=== PATIENT | female | born 1995 | race Caucasian/White ===

== ENCOUNTER → 2016-03-16 | Outpatient (REF) | payer OTHER ==
[~2016-03-16] MED LIST: FIORCAP7 PO; IBUP60TA PO; LABE20TAB PO; MOTR200T40 PO; PERC5TAB6 PO; PERCOCET PO; VALT500T PO
== END ==
LOC: M LAB REF 17:09
PROVIDERS: ATTEND Advanced Practice Midwife
DX: Z34.83 Encounter for supervision of other normal pregnancy, third trimester (principal)

== ENCOUNTER → 2016-03-29 | Outpatient (CLI) | payer OTHER ==
[~2016-03-29] MED LIST changes: -MOTR200T40 PO; +MOTR200T44 PO
[2016-03-29 15:49] LABS: BASO % 0.2 % (0.0-1.0); EOS # 0.1 K/mm3 (0.0-0.50); EOS % 1.5 % (0.0-3.0); LARGE UNSTAINED CELL # 0.2 K/mm3 (0.0-0.4); LARGE UNSTAINED CELL % 2.2 % (0.0-4.0); LYMPH # 1.7 K/mm3 (1.5-6.5); LYMPH % 19.6 % (24.0-44.0); MEAN CORPUSCULAR HEMOGLOBIN 25.7 pg (27.0-33.0); MEAN CORPUSCULAR HGB CONC 31.4 g/dl (32.0-36.5); MEAN CORPUSCULAR VOLUME 81.9 fl (80.0-96.0); MONO # 0.4 K/mm3 (0.0-0.8); MONO % 4.8 % (0.0-5.0); NEUTROPHILS # 6.3 K/mm3 (1.8-7.7); NEUTROPHILS % 71.7 % (36.0-66.0); PLATELET COUNT, AUTOMATED 195 k/mm3 (150-450); WHITE BLOOD COUNT 8.8 K/mm3 (4.0-10.0)
== END ==
LOC: M LAB 14:16
PROVIDERS: ATTEND Advanced Practice Midwife
DX: Z34.83 Encounter for supervision of other normal pregnancy, third trimester (principal)

== ENCOUNTER → 2016-04-13 | Outpatient (REF) | payer OTHER | LOC: M LAB REF 17:03 | PROVIDERS: ATTEND Advanced Practice Midwife | DX: Z34.82 Encounter for supervision of other normal pregnancy, second trimester (principal) ==

== ENCOUNTER → 2016-05-12 | Outpatient (REF) | payer OTHER | LOC: M LAB REF 12:50 | PROVIDERS: ATTEND Obstetrics & Gynecology | DX: Z34.83 Encounter for supervision of other normal pregnancy, third trimester (principal) ==

== ENCOUNTER → 2016-05-13 | Outpatient (CLI) | payer OTHER ==
[2016-05-13 13:43] LABS: MEAN CORPUSCULAR HEMOGLOBIN 25.1 pg (27.0-33.0); MEAN CORPUSCULAR VOLUME 81.1 fl (80.0-96.0); RED CELL DISTRIBUTION WIDTH 15.9 % (11.5-14.5); WHITE BLOOD COUNT 7.9 K/mm3 (4.0-10.0)
[2016-05-13 13:50] LABS: CREATININE, SERUM 0.5 MG/DL (0.6-1.0)
[2016-05-13 13:51] LABS: ALBUMIN 2.5 GM/DL (3.2-5.2); ALBUMIN/GLOBULIN RATIO 0.71 (1.00-1.93); ALKALINE PHOSPHATASE 149 U/L (45-117); ALT/SGPT 21 U/L (12-78); ANION GAP 9 MEQ/L (8-16); AST/SGOT 19 U/L (15-37); BILIRUBIN,TOTAL 0.2 MG/DL (0.2-1.0); BLOOD UREA NITROGEN 3 MG/DL (7-18); CALCIUM LEVEL 8.7 MG/DL (8.5-10.1); CARBON DIOXIDE LEVEL 23 MEQ/L (21-32); CHLORIDE LEVEL 109 MEQ/L (98-107); CREATININE FOR GFR 0.46 MG/DL (0.55-1.02); GLUCOSE, FASTING 88 MG/DL (70-105); POTASSIUM SERUM 3.9 MEQ/L (3.5-5.1); SODIUM LEVEL 141 MEQ/L (136-145); URIC ACID 2.7 MG/DL (2.6-6.0)
[2016-05-13 14:01] LABS: CREATININE CLEARANCE, URINE 86.1 ML/MIN (75-115)
== END ==
LOC: M LAB 12:55
PROVIDERS: ATTEND Obstetrics & Gynecology
DX: O16.9 Unspecified maternal hypertension, unspecified trimester (principal)

== ENCOUNTER 2016-05-19 08:40 | Outpatient (CLI) | payer OTHER ==
[~2016-05-19] VITALS: Ht 160 cm; Wt 98.9 kg
[2016-05-19] MEDS ORDERED: IRON SUCROSE 25 MG in NS 50 ML IV ONE (09:00)
[2016-05-19] MEDS ORDERED: ACETAMINOPHEN 500 MG TAB PO ONE (09:45)
[2016-05-19] MEDS ORDERED: IRON SUCROSE 475 MG in NS 250 ML IV ONE (10:00)
[2016-05-19] MEDS ORDERED: PRENTAB31 PO (10:04)
[2016-05-19] MEDS ORDERED: IRON50TA PO (10:04)
== END 2016-05-19 14:45 | disposition home or self-care (01) ==
LOC: M INFU 08:40
PROVIDERS: ATTEND Specialist
DX: D64.9 Anemia, unspecified (principal)
CPT/HCPCS: 96365; 96366; J1756

== ENCOUNTER → 2016-05-25 | Outpatient (REF) | payer OTHER ==
[~2016-05-25] MED LIST changes: +IRON50TA PO; +PRENTAB31 PO
== END ==
LOC: M LAB REF 12:18
PROVIDERS: ATTEND Obstetrics & Gynecology
DX: O11.3 Pre-existing hypertension with pre-eclampsia, third trimester (principal)

== ENCOUNTER 2016-06-01 07:34 | Inpatient (IN) | payer OTHER ==
[~2016-06-01] VITALS: Ht 160 cm; Wt 99.3 kg
[2016-06-01] MEDS ORDERED: LACTATED RINGER'S 1000 ML IV STA ×2 (08:33→23:37)
[2016-06-01] MEDS ORDERED: LR 1,000 ML IV SCH ×2 (08:33→13:30)
[2016-06-01] MEDS ORDERED: BICITRA 30ML SOLN UDC PO ONE (08:45)
[2016-06-01 09:29] LABS: MEAN CORPUSCULAR HEMOGLOBIN 25.7 pg (27.0-33.0); MEAN CORPUSCULAR HGB CONC 30.9 g/dl (32.0-36.5); MEAN CORPUSCULAR VOLUME 83.1 fl (80.0-96.0); RED CELL DISTRIBUTION WIDTH 19.5 % (11.5-14.5); WHITE BLOOD COUNT 7.3 K/mm3 (4.0-10.0)
[2016-06-01] MEDS ORDERED: NALBUPHINE HCL 10 MG/ML AMP (J2300) IV PRN ×2 (11:17→13:30)
[2016-06-01] MEDS ORDERED: NALOXONE INJ 0.4 MG/1 ML VIAL (J2310) IV PRN ×2 (11:17)
[2016-06-01] MEDS ORDERED: METOCLOPRAMIDE INJ 10MG/2ML VIAL (J2765) IV PRN (11:17)
[2016-06-01] MEDS ORDERED: ONDANSETRON 4MG/2ML VIAL (J2405) IV PRN ×2 (11:17→13:30)
[2016-06-01] MEDS ORDERED: PHENYLephrine HCL 500 MCG/5 ML (100MCG/ML) SYRINGE (J2370) As Ordered ONE (11:53)
[2016-06-01] MEDS ORDERED: MORPHINE PRES-FREE INJ 10 MG/10 ML VIAL (J2274) As Ordered ONE (11:53)
[2016-06-01] MEDS ORDERED: KETOROLAC 60 MG/2 ML VIAL (J1885) As Ordered ONE (11:53)
[2016-06-01] MEDS ORDERED: ONDANSETRON 4MG/2ML VIAL (J2405) As Ordered ONE (11:53)
[2016-06-01] MEDS ORDERED: ePHEDrine SULFATE 25 MG/5 ML(5MG/ML) SYRINGE As Ordered ONE ×2 (11:53→13:31)
[2016-06-01] MEDS ORDERED: MIDAZOLAM INJ 2 MG/2 ML VIAL (J2250) As Ordered ONE (11:58)
[2016-06-01] MEDS ORDERED: OXYTOCIN INJ 10 UNITS/ML VIAL (J2590) As Ordered ONE (12:02)
[2016-06-01] MEDS ORDERED: OXYTOCIN 30 UNITS IN 0.9% NaCl 500ML IV BAG (J2590) As Ordered ONE ×2 (12:49→13:21)
[2016-06-01] MEDS: diphenhydrAMINE INJ 50MG/ML VIAL (J1200) IV PRN ×2 (13:25→14:00)
[2016-06-01] MEDS ORDERED: OXYTOCIN DRIP 30 UNITS in APPROPRIATE DILUENT 1 EA IV ONE (13:30)
[2016-06-01] MEDS ORDERED: RHOGAM 300 MCG (1500 IU) INJ (J2790) IM SCH (13:30)
[2016-06-01] MEDS ORDERED: PERCOCET 5MG/325MG TAB PO PRN ×2 (13:30)
[2016-06-01] MEDS ORDERED: HYDROmorphone HCL 1 MG/ML SYRINGE (J1170) IV PRN (13:30)
[2016-06-01] MEDS ORDERED: MEASLES,MUMPS,RUBELLA VACCINE INJ (MMR-II) (90707) SC SCH (13:30)
[2016-06-01] MEDS ORDERED: DOCUSATE SODIUM 100 MG CAP PO PRN (13:30)
[2016-06-01] MEDS ORDERED: fentaNYL 100 MCG/2 ML INJECTION (J3010) IV PRN (13:30)
[2016-06-01] MEDS ORDERED: MOM 30ML SUSPENSION UDC PO PRN (13:30)
[2016-06-01] MEDS ORDERED: diphenhydrAMINE INJ 50MG/ML VIAL (J1200) As Ordered ONE (13:31)
[2016-06-01] MEDS: KETOROLAC 30 MG/ML VIAL (J1885) IV SCH ×2 (17:32→23:17)
[2016-06-01] MEDS: LR 1,000 ML IV SCH ×3 (18:11→23:56)
[2016-06-01 22:40] VITALS: BP 133/63
[2016-06-01] MEDS ORDERED: LACTATED RINGER'S 1000 ML IV ONE (23:45)
[2016-06-01] MEDS ORDERED: diphenhydrAMINE INJ 50MG/ML VIAL (J1200) IV PRN ×2 (23:45)
[2016-06-02 02:53] VITALS: BP 148/76
--- NOTE | 2016-06-02 05:17 | RO ---
DATE OF PROCEDURE: 06/01/2016 PREOPERATIVE DIAGNOSES: 1. Intrauterine at 37+ weeks for repeat section. 2. Mild preeclampsia. POSTOPERATIVE DIAGNOSES: 1. Intrauterine at 37+ weeks for repeat section. 2. Mild preeclampsia. 3. High spinal anesthesia. PROCEDURE PERFORMED: Repeat section. SURGEON: Courtney Everett MD ASSISTANTS: Arron Horner DO ANESTHESIA: Spinal. ESTIMATED BLOOD LOSS: 550 mL. INTRAVENOUS FLUIDS: 2000 mL of lactated Ringer solution. POSTOPERATIVE URINE OUTPUT: 600 mL. PREOPERATIVE ANTIBIOTICS: 2 grams of Ancef. OPERATIVE FINDINGS: Liveborn male , 9 and 9, weight 7 pounds 14 ounces or 3564 grams. DESCRIPTION OF OPERATION: After informed consent was obtained and written consent was reviewed, the patient was brought to the operating room where spinal anesthesia was placed. She was then placed in a supine position with a left lateral tilt. It was noticed that the patient was experiencing a higher level from spinal anesthesia and decision was made to urgently proceed with delivery. She was emergently prepped and draped in a sterile fashion. Anesthesia was then tested, followed by an incision along with her previous Pfannenstiel skin incision, which was carried down to the underlying rectus fascia. The fascia was scored and this incision was extended bilaterally. The fascia was then dissected off the underlying rectus muscles both superiorly and inferiorly. The rectus muscles were in the midline. The peritoneum was entered sharply. The vesicouterine peritoneum was then identified, tented and excised to create a bladder flap. Bladder blade was retract back the bladder. Curvilinear incision was then made in the lower uterine segment. Amniotomy was then performed productive of clear fluid. head was delivered through the uterine incision atraumatically, followed by delivery of shoulders and corpus. The cord was clamped times two and was cut. Infant was taken over to the warmer. Cord blood was then obtained. Placenta was then drained and delivered grossly intact. The uterus was then exteriorized and cleared of all clots and debris. The uterine incision was then closed in two layers using #0 Vicryl, first layer in a running locking fashion, followed by a second layer for imbrication in a running nonlocking fashion. A [id number] stitch was placed for hemostasis. The abdomen was then suctioned. The uterus was then returned to the patient's abdomen. Uterine incision was re-inspected and noted to be hemostatic. The anterior peritoneum was then reapproximated with #3-0 Vicryl. Rectus muscles were then reapproximated using #3-0 Vicryl. The fascia was then closed using #0 Vicryl in a running nonlocking fashion. The subcutaneous tissue was then suctioned and irrigated. I then excise the previous Pfannenstiel scar. The subcutaneous tissue was then reapproximated using #3-0 Vicryl. Several subdermal stitches were placed with #3-0 Vicryl and the skin was closed with #4-0 Monocryl in a subcuticular fashion. The incision was then cleaned and dry. Mastisol was applied above and below the incision. Steri-Strips were applied over the incision and incision was dressed. Patient was then taken to recovery in stable condition. Counts were correct. MTDD
[2016-06-02 05:52] VITALS: BP 135/74
[2016-06-02] MEDS: LR 1,000 ML IV SCH ×3 (05:55→19:37)
[2016-06-02] MEDS: KETOROLAC 30 MG/ML VIAL (J1885) IV SCH ×2 (05:56→12:37)
[2016-06-02] MEDS ORDERED: IBUP800T23 PO (07:09)
[2016-06-02] MEDS ORDERED: OXYC1TAB23 PO (07:11)
[2016-06-02 07:19] LABS: MEAN CORPUSCULAR HEMOGLOBIN 25.3 pg (27.0-33.0); MEAN CORPUSCULAR HGB CONC 30.3 g/dl (32.0-36.5); MEAN CORPUSCULAR VOLUME 83.5 fl (80.0-96.0); RED CELL DISTRIBUTION WIDTH 19.6 % (11.5-14.5)
[2016-06-02] MEDS: PRENATAL VITAMIN TAB PO SCH (09:09)
[2016-06-02] MEDS: FERROUS SULFATE 325MG TAB PO SCH (09:09)
[2016-06-02 10:00] VITALS: BP 142/71
[2016-06-02] MEDS: PERCOCET 5MG/325MG TAB PO PRN ×4 (11:14→23:38)
[2016-06-02 14:00] VITALS: BP 113/62
[2016-06-02 18:20] VITALS: BP 122/72
[2016-06-02] MEDS: IBUPROFEN 800 MG TAB PO SCH (19:31)
[2016-06-02 22:20] VITALS: BP 136/81
[2016-06-02] MEDS: SIMETHICONE 80 MG CHEW TAB PO PRN (22:32)
[2016-06-03] MEDS: PERCOCET 5MG/325MG TAB PO PRN ×3 (02:33→16:17)
[2016-06-03] MEDS: IBUPROFEN 800 MG TAB PO SCH ×3 (04:22→20:21)
[2016-06-03 05:38] VITALS: BP 139/86
[2016-06-03] MEDS: SIMETHICONE 80 MG CHEW TAB PO PRN ×2 (06:31→15:25)
[2016-06-03] MEDS: FERROUS SULFATE 325MG TAB PO SCH (09:55)
[2016-06-03] MEDS: PRENATAL VITAMIN TAB PO SCH (09:55)
[2016-06-03 18:29] VITALS: BP 135/87
[2016-06-03 21:00] VITALS: BP 139/77
[2016-06-04] MEDS: IBUPROFEN 800 MG TAB PO SCH ×2 (05:03→12:19)
[2016-06-04 05:27] VITALS: BP 141/91
[2016-06-04] MEDS: PRENATAL VITAMIN TAB PO SCH (09:10)
[2016-06-04] MEDS: FERROUS SULFATE 325MG TAB PO SCH (09:10)
--- NOTE | 2016-06-04 10:26 | DSES ---
DATE OF ADMISSION: DATE OF DISCHARGE: 06/04/2016 DISCHARGE DIAGNOSIS: 1. Repeat section postoperative day #3 2. Mild preeclampsia resolving, stable condition. SURGEON: Dr. Courtney Everett HISTORY: Shanique is a 3, para 3-0-0-3 now, who underwent repeat section at 37+ weeks due to mild preeclampsia. Her postoperative course has been uncomplicated. She has been out of bed for self care, jessica care and care. Her pain has been well controlled with oral Percocet. She denies headache or vision, epigastric pain and right upper quadrant discomfort. She delivered a live male infant weighing 7 pounds 14 ounces, 3564 grams, score 9 and 9. She has been breast feeding and supplementing with formula. She does desire discharge today. Vital signs are stable. Temperature 95, pulse 86, respirations 20, blood pressure is 141/91. Her preoperative complete blood count (CBC) with hemoglobin of 10.5, hematocrit 33.9, platelets 129 on 06/01. Postoperative complete blood count (CBC) n 06/02 with hemoglobin of 7.5, hematocrit 24.7 and platelets of 117. She does deny dizziness, lightheadedness, palpitations and headache. She has been taking ferrous sulfate 325 mg by mouth twice a day PLAN: To discharge her home today. She is to follow up at [facility] in 3 to 4 days for blood pressure check, 2 weeks for an incision check and 6 weeks for appointment. I did review discharge instructions with her including breast care, incision care, jessica care, pelvic rest, activity and lifting restrictions, access to care, other danger signs related to preeclampsia and signs and symptoms of postoperative infection in which to report. Prescriptions for Percocet 5/325 by mouth has been faxed E prescribed by her surgeon to her pharmacy. She is also to continue her ferrous sulfate for anemia. All the patient's questions were answered and discharge will be today.
[2016-06-04] MEDS ORDERED: OXYC1TAB23 PO (11:53)
[2016-06-04] MEDS ORDERED: FERR325T3 PO (11:53)
== END 2016-06-04 12:25 | disposition home or self-care (01) | DRG 540 ==
LOC: M LDI 07:34 → M OBS 15:09 → EDSTATUS 06-15 09:30
PROVIDERS: ADMIT Obstetrics & Gynecology; ATTEND Obstetrics & Gynecology
PROC: 10D00Z1 Extraction of Products of Conception, Low, Open Approach (ICD-10-PCS; principal; 2016-06-01 09:30)
DX: O14.04 Mild to moderate pre-eclampsia, complicating childbirth (principal); O34.211 Maternal care for low transverse scar from previous cesarean delivery; Z37.0 Single live birth; Z3A.37 37 weeks gestation of pregnancy

== ENCOUNTER → 2016-07-29 | Outpatient (REF) | payer OTHER ==
[~2016-07-29] MED LIST changes: +FERR325T3 PO; +IBUP800T23 PO; +OXYC1TAB23 PO
== END ==
LOC: M LAB REF 12:54
PROVIDERS: ATTEND Advanced Practice Midwife
DX: Z11.3 Encounter for screening for infections with a predominantly sexual mode of transmission (principal)

== ENCOUNTER → 2016-11-02 | Outpatient (CLI) | payer OTHER ==
[~2016-11-02] MED LIST changes: +IBUP1TAB7 PO; -IBUP800T23 PO; +PERC5TAB12 PO; -PERC5TAB6 PO
[2016-11-02 17:19] LABS: CONTROL LINE HCG INT CTR LINE PRESENT
== END ==
LOC: M SMT 13:54
PROVIDERS: ATTEND Advanced Practice Midwife
DX: Z30.09 Encounter for other general counseling and advice on contraception (principal)

== ENCOUNTER → 2016-11-22 | Outpatient (REF) | payer OTHER | LOC: M LAB REF 09:35 | PROVIDERS: ATTEND Physician Assistant | DX: Z20.2 Contact with and (suspected) exposure to infections with a predominantly sexual mode of transmission (principal) ==

== ENCOUNTER → 2017-02-16 | Outpatient (CLI) | payer OTHER ==
[2017-02-16 18:14] LABS: BASO % 0.3 % (0.0-1.0); EOS # 0.1 10^3/uL (0.0-0.50); EOS % 0.5 % (0.0-3.0); IMMATURE GRANULOCYTE % 0.2 % (0-0); LYMPH # 1.6 10^3/uL (1.5-6.5); LYMPH % 16.9 % (24.0-44.0); MEAN CORPUSCULAR HEMOGLOBIN 29.5 pg (27.0-33.0); MEAN CORPUSCULAR HGB CONC 32.6 g/dl (32.0-36.5); MEAN CORPUSCULAR VOLUME 90.4 fl (80.0-96.0); MONO # 0.6 10^3/uL (0.0-0.8); MONO % 6.9 % (0.0-5.0); NEUTROPHILS # 6.9 10^3/uL (1.8-7.7); NEUTROPHILS % 75.2 % (36.0-66.0); PLATELET COUNT, AUTOMATED 275 10^3/uL (150-450); WHITE BLOOD COUNT 9.2 10^3/uL (4.0-10.0)
[2017-02-17 11:22] LABS: HBsAg Prenatal NEGATIVE (NEGATIVE)
== END ==
LOC: M SMT 10:54
PROVIDERS: ATTEND Obstetrics & Gynecology
DX: Z34.81 Encounter for supervision of other normal pregnancy, first trimester (principal); Z3A.08 8 weeks gestation of pregnancy

== ENCOUNTER → 2017-03-16 | Outpatient (REF) | payer OTHER | LOC: M LAB REF 13:05 | DX: Z34.82 Encounter for supervision of other normal pregnancy, second trimester (principal) ==

== ENCOUNTER → 2017-04-26 | Outpatient (REF) | payer OTHER | LOC: M LAB REF 13:02 | DX: Z34.82 Encounter for supervision of other normal pregnancy, second trimester (principal) ==

== ENCOUNTER → 2017-04-27 | Outpatient (CLI) | payer OTHER | LOC: M RAD 06:38 | DX: Z34.81 Encounter for supervision of other normal pregnancy, first trimester (principal) | CPT/HCPCS: 76811 ==

== ENCOUNTER → 2017-05-25 | Outpatient (REF) | payer OTHER | LOC: M LAB REF 12:04 | DX: Z34.82 Encounter for supervision of other normal pregnancy, second trimester (principal) ==

== ENCOUNTER → 2017-05-29 | Outpatient (CLI) | payer OTHER | LOC: M RAD 12:58 | DX: Z34.82 Encounter for supervision of other normal pregnancy, second trimester (principal) | CPT/HCPCS: 76816 ==

== ENCOUNTER → 2017-06-22 | Outpatient (CLI) | payer OTHER ==
[2017-06-22 12:01] LABS: ALT/SGPT 29 U/L (12-78); AST/SGOT 16 U/L (7-37); BILIRUBIN,TOTAL 0.2 MG/DL (0.2-1.0); CREATININE FOR GFR 0.49 MG/DL (0.55-1.30); GLOMERULAR FILTRATION RATE > 60.0 (>60); GLUCOSE CHALLENGE TEST 1 HOUR 77 MG/DL (LESS THAN 140); LDH LACTATE DEHYDROGENASE 170 U/L (84-246); URIC ACID 2.8 MG/DL (2.6-6.0)
[2017-06-22 12:20] LABS: TOTAL PROTEIN,RANDOM URINE 27.6 MG/DL (0.0-12.0)
[2017-06-22 12:20] LABS: CREATININE,RANDOM URINE 73.1 MG/DL
== END ==
LOC: M LAB 10:22
DX: Z34.82 Encounter for supervision of other normal pregnancy, second trimester (principal); Z36.89 Encounter for other specified antenatal screening
CPT/HCPCS: 84460

== ENCOUNTER → 2017-06-27 | Outpatient (REF) | payer OTHER ==
[2017-06-28 20:23] LABS: CREATININE CLEARANCE, URINE 121.2 ML/MIN (75-115); CREATININE, SERUM 0.5 MG/DL (0.6-1.0); CREATININE, URINE 87.3 MG/DL; TOTAL VOLUME, URINE 1000 ML; URINE TOTAL PROTEIN 20.8 MG/DL (0-12)
== END ==
LOC: M LAB REF 14:12
DX: Z34.82 Encounter for supervision of other normal pregnancy, second trimester (principal)

== ENCOUNTER 2017-07-12 18:43 | Outpatient (CLI) | payer OTHER ==
[2017-07-12 20:14] LABS: BASO % 0.3 % (0.0-1.0); EOS # 0.2 10^3/uL (0.0-0.50); EOS % 2.3 % (0.0-3.0); HEMATOCRIT 35.2 % (36.0-47.0); HEMOGLOBIN 11.7 g/dl (12.0-15.5); IMMATURE GRANULOCYTE % 0.2 % (0-3.0); LYMPH # 1.9 10^3/uL (1.5-6.5); LYMPH % 21.7 % (24.0-44.0); MEAN CORPUSCULAR HEMOGLOBIN 30.3 pg (27.0-33.0); MEAN CORPUSCULAR HGB CONC 33.2 g/dl (32.0-36.5); MEAN CORPUSCULAR VOLUME 91.2 fl (80.0-96.0); MONO # 0.9 10^3/uL (0.0-0.8); MONO % 9.7 % (0.0-5.0); NEUTROPHILS # 5.8 10^3/uL (1.8-7.7); NEUTROPHILS % 65.8 % (36.0-66.0); PLATELET COUNT, AUTOMATED 182 10^3/uL (150-450); RED BLOOD COUNT 3.86 10^6/uL (4.00-5.40); RED CELL DISTRIBUTION WIDTH 12.9 % (11.5-14.5); WHITE BLOOD COUNT 8.9 10^3/uL (4.0-10.0)
[2017-07-12] MEDS: LACTATED RINGER'S 1000 ML IV (20:38)
[2017-07-12] MEDS: PROMETHAZINE INJ 25 MG/ML VIAL (J2550) IV (20:39)
[2017-07-12] MEDS: LR 1,000 ML IV (20:39)
[2017-07-13 02:48] LABS: ALT/SGPT 28 U/L (12-78); AST/SGOT 27 U/L (7-37); BILIRUBIN,TOTAL 0.2 MG/DL (0.2-1.0); CREATININE FOR GFR 0.51 MG/DL (0.55-1.30); GLOMERULAR FILTRATION RATE > 60.0 (>60); LDH LACTATE DEHYDROGENASE 238 U/L (84-246); URIC ACID 2.8 MG/DL (2.6-6.0)
[2017-07-13] MEDS: LR 1,000 ML IV (03:05)
[2017-07-13] MEDS: FIORICET TAB PO (09:02)
== END 2017-07-13 10:28 | disposition home or self-care (01) ==
LOC: M LDO 18:43
DX: O13.3 Gestational [pregnancy-induced] hypertension without significant proteinuria, third trimester (principal); O99.89 Other specified diseases and conditions complicating pregnancy, childbirth and the puerperium; R51 Headache; Z3A.29 29 weeks gestation of pregnancy
CPT/HCPCS: 59025

== ENCOUNTER → 2017-07-20 | Outpatient (CLI) | payer OTHER | LOC: M RAD 07:33 | DX: O13.3 Gestational [pregnancy-induced] hypertension without significant proteinuria, third trimester (principal) | CPT/HCPCS: 76816 ==

== ENCOUNTER → 2017-07-31 | Outpatient (REF) | payer OTHER | LOC: M LAB REF 11:37 | DX: Z34.83 Encounter for supervision of other normal pregnancy, third trimester (principal); Z3A.00 Weeks of gestation of pregnancy not specified | CPT/HCPCS: 87086 ==

== ENCOUNTER → 2017-08-14 | Outpatient (REF) | payer OTHER | LOC: M LAB REF 13:27 | DX: Z3A.34 34 weeks gestation of pregnancy (principal) | CPT/HCPCS: 87086 ==

== ENCOUNTER → 2017-08-22 | Outpatient (CLI) | payer OTHER | LOC: M RAD 08:58 | DX: O13.3 Gestational [pregnancy-induced] hypertension without significant proteinuria, third trimester (principal); Z3A.35 35 weeks gestation of pregnancy | CPT/HCPCS: 76816 ==

== ENCOUNTER → 2017-08-22 | Outpatient (CLI) | payer OTHER ==
[2017-08-22 10:00] LABS: HEMATOCRIT 33.2 % (36.0-47.0); HEMOGLOBIN 10.9 g/dl (12.0-15.5); MEAN CORPUSCULAR HGB CONC 32.8 g/dl (32.0-36.5); MEAN CORPUSCULAR VOLUME 88.3 fl (80.0-96.0); PLATELET COUNT, AUTOMATED 206 10^3/uL (150-450); RED BLOOD COUNT 3.76 10^6/uL (4.00-5.40); RED CELL DISTRIBUTION WIDTH 12.9 % (11.5-14.5)
== END ==
LOC: M LAB 09:44
DX: D64.9 Anemia, unspecified (principal)
CPT/HCPCS: 85027

== ENCOUNTER → 2017-08-24 | Outpatient (REF) | payer OTHER | LOC: M LAB REF 17:15 | DX: Z34.83 Encounter for supervision of other normal pregnancy, third trimester (principal) ==

== ENCOUNTER 2017-09-01 08:18 | Outpatient (CLI) | payer OTHER ==
[2017-09-01] MEDS: BETAMETHASONE SOLUSPAN 6MG/ML INJ 5ML (J0702) IM (09:00)
[2017-09-01] MEDS: LACTATED RINGER'S 1000 ML IV (09:26)
[2017-09-01] MEDS: LR 1,000 ML IV (11:01)
== END 2017-09-01 11:58 | disposition home or self-care (01) ==
LOC: M LDO 08:18
DX: O36.8130 Decreased fetal movements, third trimester, not applicable or unspecified (principal); O47.03 False labor before 37 completed weeks of gestation, third trimester; O13.3 Gestational [pregnancy-induced] hypertension without significant proteinuria, third trimester; O23.43 Unspecified infection of urinary tract in pregnancy, third trimester; Z3A.36 36 weeks gestation of pregnancy
CPT/HCPCS: 59025

== ENCOUNTER 2017-09-02 16:04 | Inpatient (IN) | payer OTHER ==
[2017-09-02] MEDS: ONDANSETRON 4MG/2ML VIAL (J2405) IV (17:00)
[2017-09-02] MEDS: LACTATED RINGER'S 1000 ML IV ×2 (17:00→22:18)
[2017-09-02] MEDS: LR 1,000 ML IV (17:35)
[2017-09-02] MEDS ORDERED: ACETAMINOPHEN 500 MG TAB As Ordered (18:18)
[2017-09-02] MEDS: ACETAMINOPHEN 500 MG TAB PO (18:20)
[2017-09-02 19:43] LABS: HEMATOCRIT 34.8 % (36.0-47.0); HEMOGLOBIN 11.3 g/dl (12.0-15.5); MEAN CORPUSCULAR HEMOGLOBIN 28.3 pg (27.0-33.0); MEAN CORPUSCULAR HGB CONC 32.5 g/dl (32.0-36.5); MEAN CORPUSCULAR VOLUME 87.2 fl (80.0-96.0); PLATELET COUNT, AUTOMATED 167 10^3/uL (150-450); RED BLOOD COUNT 3.99 10^6/uL (4.00-5.40); RED CELL DISTRIBUTION WIDTH 13.7 % (11.5-14.5); WHITE BLOOD COUNT 17.4 10^3/uL (4.0-10.0)
[2017-09-02 19:53] LABS: ALT/SGPT 25 U/L (12-78); AST/SGOT 23 U/L (7-37); BILIRUBIN,TOTAL 0.3 MG/DL (0.2-1.0); CREATININE FOR GFR 0.76 MG/DL (0.55-1.30); GLOMERULAR FILTRATION RATE > 60.0 (>60); LDH LACTATE DEHYDROGENASE 269 U/L (84-246); URIC ACID 5.3 MG/DL (2.6-6.0)
[2017-09-02 20:07] LABS: APPEARANCE, URINE CLOUDY (CLEAR); BACTERIA, URINE AUTO 3+ (NEGATIVE); BILIRUBIN, URINE AUTO NEGATIVE (NEGATIVE); BLOOD, URINE BLOOD 2+ (NEGATIVE); COLOR, URINE YELLOW (YELLOW); GLUCOSE, URINE (UA) AUTO NEGATIVE (NEGATIVE); KETONE, URINE AUTO 1+ mg/dL (NEGATIVE); LEUKOCYTE ESTERASE, URINE AUTO 3+ (NEGATIVE); MUCUS, URINE SMALL (NEGATIVE); NITRITE, URINE AUTO NEGATIVE (NEGATIVE); PROTEIN, URINE AUTO 2+ mg/dL (NEGATIVE); RBC, URINE AUTO 25 /HPF (0-3); SPECIFIC GRAVITY URINE AUTO 1.017 (1.002-1.035); SQUAMOUS EPITHELIAL CELL UR AU 48 /HPF (0-6); UROBILINOGEN, URINE AUTO 0.2 mg/dL (0.0-2.0); WBC, URINE AUTO 67 /HPF (0-3)
[2017-09-02 20:25] LABS: TOTAL PROTEIN,RANDOM URINE 138.7 MG/DL (0.0-12.0)
[2017-09-02] MEDS ORDERED: LR 1,000 ML IV (22:18)
[2017-09-02] MEDS ORDERED: BICITRA 30ML SOLN UDC As Ordered (22:24)
[2017-09-02] MEDS ORDERED: AZITHROMYCIN INJ 500MG VIAL (J0456) As Ordered (22:24)
[2017-09-02] MEDS ORDERED: ceFAZolin 2 GM/D5W 50 ML IV BAG (J0690 PER 500MG) As Ordered (22:25)
[2017-09-02] MEDS: AZITHROMYCIN INJ 500 MG, VIAL MATE ADAPTER 1 EACH in D5W 250 ML IV (22:32)
[2017-09-02] MEDS: BICITRA 30ML SOLN UDC PO (22:35)
[2017-09-02] MEDS ORDERED: NALOXONE INJ 0.4 MG/1 ML VIAL (J2310) IV ×2 (23:01)
[2017-09-02] MEDS ORDERED: ONDANSETRON 4MG/2ML VIAL (J2405) IV (23:01)
[2017-09-02] MEDS ORDERED: KETOROLAC 60 MG/2 ML VIAL (J1885) As Ordered (23:27)
[2017-09-02] MEDS ORDERED: ONDANSETRON 4MG/2ML VIAL (J2405) As Ordered (23:27)
[2017-09-02] MEDS ORDERED: MORPHINE PRES-FREE INJ 10 MG/10 ML VIAL (J2274) As Ordered (23:27)
[2017-09-02] MEDS ORDERED: OXYTOCIN INJ 10 UNITS/ML VIAL (J2590) As Ordered (23:27)
[2017-09-02] MEDS ORDERED: PHENYLephrine HCL 500 MCG/5 ML (100MCG/ML) SYRINGE (J2370) As Ordered (23:27)
[2017-09-02] MEDS ORDERED: ePHEDrine SULFATE 25 MG/5 ML(5MG/ML) SYRINGE As Ordered (23:27)
[2017-09-02] MEDS ORDERED: METOCLOPRAMIDE INJ 10MG/2ML VIAL (J2765) As Ordered (23:27)
[2017-09-02] MEDS ORDERED: dexameTHASONE 4 MG/ML 1ML VIAL (J1100) As Ordered (23:27)
[2017-09-03 00:03] LABS: CORD GAS ABE A -6.8; CORD GAS HCO3 A 21.8 MEQ/L; CORD GAS HCO3 V 20.9 MEQ/L; CORD GAS O2 SAT A 17.2 %; CORD GAS O2 SAT V 28.3 %; CORD GAS PCO2 A 55.8 mmHg; CORD GAS PCO2 V 46.5 mmHg; CORD GAS PH A 7.209 UNITS; CORD GAS PO2 A 11.7 mmHg; CORD GAS PO2 V 16.2 mmHg; CORD GAS SBC A 17.2 MEQ/L; CORD GAS SBC V 18.1 MEQ/L; CORD GAS TCO2 A 23.5 MEQ/L; CORD GAS TCO2 V 22.3 MEQ/L
[2017-09-03] MEDS ORDERED: OXYTOCIN INJ 10 UNITS/ML VIAL (J2590) As Ordered (00:05)
[2017-09-03] MEDS: LR 1,000 ML IV ×5 (00:11→23:25)
[2017-09-03] MEDS ORDERED: MOM 30ML SUSPENSION UDC PO (00:15)
[2017-09-03] MEDS ORDERED: METHYLERGONOVINE MALEATE 0.2 MG/ML VIAL (J2210) IM (00:15)
[2017-09-03] MEDS ORDERED: ONDANSETRON 4MG/2ML VIAL (J2405) As Ordered (00:18)
[2017-09-03] MEDS ORDERED: NALBUPHINE HCL 10 MG/ML AMP (J2300) IV (00:30)
[2017-09-03] MEDS ORDERED: ONDANSETRON 4MG/2ML VIAL (J2405) IV (00:30)
[2017-09-03] MEDS ORDERED: MORPHINE 10 MG/ML 1ML VIAL (J2270) IV (00:30)
[2017-09-03] MEDS ORDERED: fentaNYL 100 MCG/2 ML INJECTION (J3010) IV (00:30)
[2017-09-03 06:43] LABS: ALT/SGPT 20 U/L (12-78); AST/SGOT 20 U/L (7-37); BILIRUBIN,TOTAL 0.3 MG/DL (0.2-1.0); CREATININE FOR GFR 0.57 MG/DL (0.55-1.30); GLOMERULAR FILTRATION RATE > 60.0 (>60); LDH LACTATE DEHYDROGENASE 222 U/L (84-246); URIC ACID 5.1 MG/DL (2.6-6.0)
[2017-09-03] MEDS: ONDANSETRON 4MG/2ML VIAL (J2405) IV ×2 (06:46→13:19)
[2017-09-03] MEDS: METOCLOPRAMIDE INJ 10MG/2ML VIAL (J2765) IV (07:47)
[2017-09-03] MEDS: IBUPROFEN 800 MG TAB PO (08:00)
[2017-09-03] MEDS: PRENATAL VITAMINS CHEWABLE TABLET PO (09:00)
[2017-09-03] MEDS: DOCUSATE SODIUM 100 MG CAP PO ×2 (09:00→21:30)
[2017-09-03] MEDS: KETOROLAC 30 MG/ML VIAL (J1885) IV ×2 (10:25→17:05)
[2017-09-03] MEDS: NALBUPHINE HCL 10 MG/ML AMP (J2300) IV (14:29)
[2017-09-03] MEDS: LR 400 ML IV (21:27)
[2017-09-03] MEDS: NORCO, ANEXSIA 5/325MG TABLET (HYDROcodone/ACETAMINOPHEN) PO (21:30)
[2017-09-03] MEDS: RHOGAM 300 MCG (1500 IU) INJ (J2790) IM (23:38)
[2017-09-03] MEDS: MEASLES,MUMPS,RUBELLA VACCINE INJ (MMR-II) (90707) SC (23:39)
[2017-09-04] MEDS: NORCO, ANEXSIA 5/325MG TABLET (HYDROcodone/ACETAMINOPHEN) PO ×4 (05:22→20:35)
[2017-09-04] MEDS ORDERED: SLF 3 ML SYR IV (07:00)
[2017-09-04 08:03] LABS: HEMATOCRIT 27.6 % (36.0-47.0); MEAN CORPUSCULAR HEMOGLOBIN 28.6 pg (27.0-33.0); MEAN CORPUSCULAR HGB CONC 32.6 g/dl (32.0-36.5); MEAN CORPUSCULAR VOLUME 87.6 fl (80.0-96.0); PLATELET COUNT, AUTOMATED 128 10^3/uL (150-450); RED BLOOD COUNT 3.15 10^6/uL (4.00-5.40); RED CELL DISTRIBUTION WIDTH 14.5 % (11.5-14.5); WHITE BLOOD COUNT 11.3 10^3/uL (4.0-10.0)
[2017-09-04] MEDS: PRENATAL VITAMINS CHEWABLE TABLET PO (08:28)
[2017-09-04] MEDS: DOCUSATE SODIUM 100 MG CAP PO ×2 (08:28→20:34)
[2017-09-04] MEDS: SLF 3 ML SYR IV ×2 (14:00→21:44)
[2017-09-05] MEDS: NORCO, ANEXSIA 5/325MG TABLET (HYDROcodone/ACETAMINOPHEN) PO ×4 (02:10→18:02)
[2017-09-05] MEDS: SLF 3 ML SYR IV ×2 (06:14→14:00)
[2017-09-05 07:09] LABS: HEMATOCRIT 26.6 % (36.0-47.0); HEMOGLOBIN 8.4 g/dl (12.0-15.5); MEAN CORPUSCULAR HEMOGLOBIN 28.2 pg (27.0-33.0); MEAN CORPUSCULAR HGB CONC 31.6 g/dl (32.0-36.5); MEAN CORPUSCULAR VOLUME 89.3 fl (80.0-96.0); PLATELET COUNT, AUTOMATED 114 10^3/uL (150-450); RED BLOOD COUNT 2.98 10^6/uL (4.00-5.40); RED CELL DISTRIBUTION WIDTH 14.6 % (11.5-14.5); WHITE BLOOD COUNT 8.8 10^3/uL (4.0-10.0)
[2017-09-05 07:31] LABS: ALT/SGPT 20 U/L (12-78); AST/SGOT 18 U/L (7-37); BILIRUBIN,TOTAL 0.2 MG/DL (0.2-1.0); CREATININE FOR GFR 0.47 MG/DL (0.55-1.30); GLOMERULAR FILTRATION RATE > 60.0 (>60); LDH LACTATE DEHYDROGENASE 208 U/L (84-246); URIC ACID 4.6 MG/DL (2.6-6.0)
[2017-09-05] MEDS: PRENATAL VITAMINS CHEWABLE TABLET PO (10:01)
[2017-09-05] MEDS: DOCUSATE SODIUM 100 MG CAP PO ×2 (10:01→20:17)
[2017-09-05] MEDS: LABETALOL 200 MG TAB PO (15:00)
[2017-09-06] MEDS: NORCO, ANEXSIA 5/325MG TABLET (HYDROcodone/ACETAMINOPHEN) PO (00:52)
[2017-09-06] MEDS: PRENATAL VITAMINS CHEWABLE TABLET PO (07:39)
[2017-09-06] MEDS: LABETALOL 200 MG TAB PO (07:39)
[2017-09-06] MEDS: DOCUSATE SODIUM 100 MG CAP PO (07:39)
== END 2017-09-06 10:25 | disposition home or self-care (01) | DRG 540 ==
LOC: M LDO 16:04 → M OBS 09-03 01:45 → M LDI 22:19
PROC: 10D00Z1 Extraction of Products of Conception, Low, Open Approach (ICD-10-PCS; principal; 2017-09-02 07:46)
PROC: 0UL70DZ Occlusion of Bilateral Fallopian Tubes with Intraluminal Device, Open Approach (ICD-10-PCS; 2017-09-02 07:46)
DX: O14.94 Unspecified pre-eclampsia, complicating childbirth (principal); O34.211 Maternal care for low transverse scar from previous cesarean delivery; Z37.0 Single live birth; Z3A.36 36 weeks gestation of pregnancy; Z30.2 Encounter for sterilization; O43.213 Placenta accreta, third trimester

== ENCOUNTER → 2017-11-25 | Outpatient (REF) | payer OTHER ==
[2017-11-25 22:29] LABS: APPEARANCE, URINE CLOUDY (CLEAR); BACTERIA, URINE AUTO 3+ (NEGATIVE); BILIRUBIN, URINE AUTO NEGATIVE (NEGATIVE); BLOOD, URINE BLOOD NEGATIVE (NEGATIVE); COLOR, URINE AMBER (YELLOW); GLUCOSE, URINE (UA) AUTO NEGATIVE (NEGATIVE); KETONE, URINE AUTO NEGATIVE (NEGATIVE); LEUKOCYTE ESTERASE, URINE AUTO 3+ (NEGATIVE); MUCUS, URINE SMALL (NEGATIVE); NITRITE, URINE AUTO NEGATIVE (NEGATIVE); PROTEIN, URINE AUTO 2+ mg/dL (NEGATIVE); RBC, URINE AUTO 5 /HPF (0-3); SPECIFIC GRAVITY URINE AUTO 1.023 (1.002-1.035); SQUAMOUS EPITHELIAL CELL UR AU 7 /HPF (0-6); UROBILINOGEN, URINE AUTO 0.2 mg/dL (0.0-2.0); WBC, URINE AUTO 65 /HPF (0-3); YEAST LIKE CELL URINE AUTO SMALL
== END ==
LOC: M LAB REF 09:42
DX: N39.0 Urinary tract infection, site not specified (principal)
CPT/HCPCS: 81001

== ENCOUNTER → 2018-05-18 | Outpatient (REF) | payer OTHER ==
[~2018-05-18] MED LIST changes: +ASPI81TA85 PO; +COLA100C5 PO; +FIOR1CAP PO; +IBUP80TA PO; +LABE200T32 PO; +MACR100C43 PO; +PREN1TAB14 PO
[2018-05-18 14:53] LABS: APPEARANCE, URINE HAZY (CLEAR); BACTERIA, URINE AUTO 2+ (NEGATIVE); BILIRUBIN, URINE AUTO NEGATIVE (NEGATIVE); BLOOD, URINE BLOOD 1+ (NEGATIVE); COLOR, URINE AMBER (YELLOW); GLUCOSE, URINE (UA) AUTO NEGATIVE (NEGATIVE); KETONE, URINE AUTO NEGATIVE (NEGATIVE); LEUKOCYTE ESTERASE, URINE AUTO TRACE (NEGATIVE); MUCUS, URINE LARGE (NEGATIVE); NITRITE, URINE AUTO POSITIVE (NEGATIVE); PROTEIN, URINE AUTO 1+ mg/dL (NEGATIVE); RBC, URINE AUTO 2 /HPF (0-3); SPECIFIC GRAVITY URINE AUTO 1.025 (1.002-1.035); SQUAMOUS EPITHELIAL CELL UR AU 10 /HPF (0-6); UROBILINOGEN, URINE AUTO 0.2 mg/dL (0.0-2.0); WBC, URINE AUTO 19 /HPF (0-3)
== END ==
LOC: M LAB REF 14:04
PROVIDERS: ATTEND Physician Assistant Medical
DX: N39.0 Urinary tract infection, site not specified (principal)

== ENCOUNTER → 2018-05-21 | Outpatient (CLI) | payer OTHER ==
[2018-05-21 15:54] LABS: CHLAMYDIA DNA AMPLIFICATION NEGATIVE (NEGATIVE); GC DNA AMPLIFICATION NEGATIVE (NEGATIVE)
== END ==
LOC: M SMT 09:35
PROVIDERS: ATTEND Obstetrics & Gynecology
DX: Z11.3 Encounter for screening for infections with a predominantly sexual mode of transmission (principal)

== ENCOUNTER → 2018-05-21 | Outpatient (CLI) | payer OTHER ==
[2018-05-21 14:14] LABS: HEPATITIS A ANTIBODY IGM NEGATIVE (NEGATIVE); HEPATITIS B CORE ANTIBODY IGM NEGATIVE (NEGATIVE); HEPATITIS B SURFACE ANTIGEN NEGATIVE (NEGATIVE); HEPATITIS C VIRUS ABY INDEX < 0.0 INDEX (<0.8); HIV 1&2 SCREEN CENTAUR NEGATIVE (NEGATIVE)
== END ==
LOC: M SMT 09:29
PROVIDERS: ATTEND Obstetrics & Gynecology
DX: Z11.3 Encounter for screening for infections with a predominantly sexual mode of transmission (principal)

== ENCOUNTER → 2018-05-21 | Outpatient (REF) | payer OTHER ==
[2018-05-24 15:52] LABS: HPV HYBRID CAPTURE II Positive (Negative)
== END ==
LOC: M LAB REF 13:38
PROVIDERS: ATTEND Obstetrics & Gynecology
DX: Z12.4 Encounter for screening for malignant neoplasm of cervix (principal); R87.610 Atypical squamous cells of undetermined significance on cytologic smear of cervix (ASC-US)

== ENCOUNTER → 2018-06-07 | Outpatient (REF) | payer OTHER | LOC: M LAB REF 18:23 | PROVIDERS: ATTEND Obstetrics & Gynecology | DX: N87.0 Mild cervical dysplasia (principal) ==

== ENCOUNTER 2019-03-08 23:43 | Emergency (ER) | payer OTHER ==
[~2019-03-08] VITALS: Ht 160 cm; Wt 81.8 kg
[~2019-03-08 23:43] MED LIST changes: +IBUP600T42 PO; -IBUP60TA PO
[2019-03-09] MEDS ORDERED: NS 1,000 ML IV ONE (01:00)
[2019-03-09] MEDS ORDERED: ACETAMINOPHEN 325 MG TAB PO ONE (01:00)
[2019-03-09 01:28] LABS: BASO % 0.4 % (0.0-1.0); EOS # 0.1 10^3/uL (0.0-0.5); EOS % 0.7 % (0.0-3.0); HEMATOCRIT 39.6 % (36.0-47.0); HEMOGLOBIN 12.8 g/dl (12.0-15.5); LYMPH # 0.9 10^3/uL (1.5-5.0); LYMPH % 9.3 % (24.0-44.0); MEAN CORPUSCULAR HEMOGLOBIN 29.6 pg (27.0-33.0); MEAN CORPUSCULAR HGB CONC 32.3 g/dl (32.0-36.5); MEAN CORPUSCULAR VOLUME 91.7 fl (80.0-96.0); MONO # 0.8 10^3/uL (0.0-0.8); MONO % 8.2 % (0.0-5.0); NEUTROPHILS # 7.5 10^3/uL (1.5-8.5); NEUTROPHILS % 81.2 % (36.0-66.0); PLATELET COUNT, AUTOMATED 227 10^3/uL (150-450); RED BLOOD COUNT 4.32 10^6/uL (4.00-5.40); WHITE BLOOD COUNT 9.2 10^3/uL (4.0-10.0)
[2019-03-09 01:42] LABS: INFLUENZA A AMPLIFICATION NEGATIVE (NEGATIVE); INFLUENZA B AMPLIFICATION POSITIVE (NEGATIVE)
[2019-03-09 01:53] LABS: ALBUMIN 3.7 GM/DL (3.2-5.2); ALT/SGPT 25 U/L (12-78); BILIRUBIN,DIRECT < 0.1 MG/DL (0.0-0.2); BILIRUBIN,TOTAL 0.3 MG/DL (0.2-1.0); BLOOD UREA NITROGEN 16 MG/DL (7-18); CALCIUM LEVEL 8.8 MG/DL (8.5-10.1); CARBON DIOXIDE LEVEL 23 MEQ/L (21-32); CHLORIDE LEVEL 106 MEQ/L (98-107); CK-MB VALUE MASS 2.2 NG/ML (<3.6); CPK CREATINE PHOSPHOKINASE 117 U/L (26-192); CREATININE FOR GFR 0.75 MG/DL (0.55-1.30); GLOMERULAR FILTRATION RATE > 60.0 (>60); GLUCOSE, FASTING 92 MG/DL (70-100); LIPASE 105 U/L (73-393); MB/CK RELATIVE INDEX 1.88 (< OR =4); POTASSIUM SERUM 3.5 MEQ/L (3.5-5.1); SODIUM LEVEL 138 MEQ/L (136-145); TOTAL PROTEIN 7.6 GM/DL (6.4-8.2); TROPONIN I < 0.02 NG/ML (< 0.10)
[2019-03-09 02:23] LABS: HCG, SERUM QUANTITATIVE < 1.0 MIU/ML
[2019-03-09 03:14] VITALS: BP 122/59
[2019-03-09] MEDS ORDERED: IBUPROFEN 800 MG TAB PO ONE (03:30)
--- NOTE | 2019-03-09 07:30 | REP ---
Clinical: Chest and abdominal pain . Comparison: 04/02/2014 . Technique: PA and lateral. Findings: The mediastinum and cardiac silhouette are normal. The lung muñiz are clear and without acute consolidation, effusion, or pneumothorax. The skeletal structures are intact and normal. Impression: 1. No acute cardiopulmonary process. Electronically Signed by Logan Purcell MD 03/09/2019 07:21 A
--- NOTE | 2019-03-10 15:24 | ECGEPIP ---
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
== END 2019-03-09 03:29 | disposition home or self-care (01) ==
LOC: M ED 23:43
DX: J10.1 Influenza due to other identified influenza virus with other respiratory manifestations (principal); R00.0 Tachycardia, unspecified; I45.19 Other right bundle-branch block; J06.9 Acute upper respiratory infection, unspecified; B34.9 Viral infection, unspecified; R51 Headache; M79.10 Myalgia, unspecified site; Z87.440 Personal history of urinary (tract) infections

== ENCOUNTER 2019-08-05 16:44 | Emergency (ER) | payer OTHER ==
[~2019-08-05] VITALS: Ht 160 cm; Wt 86.6 kg
[2019-08-05 16:45] VITALS: BP 127/68
[2019-08-05] MEDS ORDERED: PRED20TA PO (17:06)
[2019-08-05] MEDS ORDERED: CALALOT4 TOP (17:06)
[2019-08-05] MEDS ORDERED: predniSONE 20 MG TAB PO ONE (17:15)
[2019-08-05] MEDS ORDERED: diphenhydrAMINE 50MG CAP PO ONE (17:15)
== END 2019-08-05 17:13 | disposition home or self-care (01) ==
LOC: M ED 16:44
DX: L53.9 Erythematous condition, unspecified (principal)

== ENCOUNTER 2019-09-23 09:44 | Emergency (ER) | payer OTHER ==
[~2019-09-23] VITALS: Ht 160 cm; Wt 87.5 kg
[~2019-09-23 09:44] MED LIST changes: +CALALOT4 TOP; +PRED20TA PO
[2019-09-23] MEDS ORDERED: NS 1,000 ML IV ONE (11:15)
[2019-09-23] MEDS ORDERED: KETOROLAC 30 MG/ML 1ML VIAL IV ONE (11:15)
[2019-09-23 11:39] LABS: BASO % 0.3 % (0.0-1.0); EOS # 0.2 10^3/uL (0.0-0.5); EOS % 1.3 % (0.0-3.0); HEMATOCRIT 41.9 % (36.0-47.0); HEMOGLOBIN 13.6 g/dl (12.0-15.5); LYMPH % 17.2 % (24.0-44.0); MEAN CORPUSCULAR HEMOGLOBIN 30.1 pg (27.0-33.0); MEAN CORPUSCULAR HGB CONC 32.5 g/dl (32.0-36.5); MEAN CORPUSCULAR VOLUME 92.7 fl (80.0-96.0); MONO # 0.9 10^3/uL (0.0-0.8); MONO % 7.9 % (0.0-5.0); NEUTROPHILS # 8.6 10^3/uL (1.5-8.5); PLATELET COUNT, AUTOMATED 253 10^3/uL (150-450); RED BLOOD COUNT 4.52 10^6/uL (4.00-5.40); WHITE BLOOD COUNT 11.7 10^3/uL (4.0-10.0)
[2019-09-23 12:13] LABS: ALBUMIN 3.7 GM/DL (3.2-5.2); ALT/SGPT 26 U/L (12-78); BILIRUBIN,DIRECT < 0.1 MG/DL (0.0-0.2); BILIRUBIN,TOTAL 0.3 MG/DL (0.2-1.0); LIPASE 96 U/L (73-393); TOTAL PROTEIN 7.5 GM/DL (6.4-8.2)
[2019-09-23] MEDS ORDERED: CIPR-249 PO (12:48)
[2019-09-23 12:58] VITALS: BP 137/72
--- NOTE | 2019-09-23 16:02 | REP ---
CT ABDOMEN AND PELVIS WITHOUT CONTRAST: CT abdomen and pelvis performed without oral or IV contrast. Sagittal and pace reconstruction images are performed. There are no prior studies for comparison. Visualized lung bases are clear. The liver, gallbladder, spleen, adrenals, pancreas and kidneys are grossly unremarkable. There is no evidence of renal, ureteral or bladder calculus. There is no hydroureteronephrosis. The abdominal aorta is normal in caliber with no aneurysm. No adenopathy is seen. There is no free air. There is no bowel wall thickening. The appendix is normal. Metallic clip is seen in the right adnexa as well as the left adnexa. There is trace free fluid in the pelvis, which is likely physiologic. There is a small amount of air in the bladder likely due to recent catheterization. IMPRESSION: No appendicitis. No renal, ureteral, or bladder calculus and no hydroureteronephrosis. Trace free fluid in the pelvis is likely physiologic. Small amount of air in the bladder is likely due to recent catheterization. Electronically Signed by Sergey Bahena MD 09/24/2019 11:21 P
== END 2019-09-23 13:01 | disposition home or self-care (01) ==
LOC: M ED 09:44
DX: N39.0 Urinary tract infection, site not specified (principal); R51 Headache; F32.9 Major depressive disorder, single episode, unspecified
CPT/HCPCS: 36415; 74176; 80047; 80076; 81001; 83690; 84702; 85025; 87088; 87186; 96361; 96374; 99284; J1885

== ENCOUNTER → 2019-11-28 | Outpatient (REF) | payer OTHER ==
[~2019-11-28] MED LIST changes: -ASPI81TA85 PO; +ASPI81TA86 PO; +CIPR-249 PO
[2019-11-28 22:22] LABS: AMORPHOUS SEDIMENT SMALL (NEGATIVE); APPEARANCE, URINE CLOUDY (CLEAR); BACTERIA, URINE AUTO 1+ (NEGATIVE); BILIRUBIN, URINE AUTO NEGATIVE (NEGATIVE); BLOOD, URINE BLOOD NEGATIVE (NEGATIVE); COLOR, URINE YELLOW (YELLOW); GLUCOSE, URINE (UA) AUTO NEGATIVE (NEGATIVE); KETONE, URINE AUTO NEGATIVE (NEGATIVE); LEUKOCYTE ESTERASE, URINE AUTO TRACE (NEGATIVE); NITRITE, URINE AUTO NEGATIVE (NEGATIVE); PROTEIN, URINE AUTO NEGATIVE (NEGATIVE); RBC, URINE AUTO 1 /HPF (0-3); SPECIFIC GRAVITY URINE AUTO 1.019 (1.002-1.035); SQUAMOUS EPITHELIAL CELL UR AU 4 /HPF (0-6); UROBILINOGEN, URINE AUTO 0.2 mg/dL (0.0-2.0); WBC, URINE AUTO 10 /HPF (0-3)
== END ==
LOC: M LAB REF 21:47
PROVIDERS: ATTEND Physician Assistant
DX: N39.0 Urinary tract infection, site not specified (principal)

== ENCOUNTER → 2020-06-29 | Outpatient (REF) | payer OTHER ==
[2020-06-29 18:39] LABS: BASO % 0.7 % (0.0-1.0); EOS # 0.1 10^3/uL (0.0-0.5); EOS % 2.2 % (0.0-3.0); HEMATOCRIT 41.1 % (36.0-47.0); HEMOGLOBIN 13.2 g/dl (12.0-15.5); LYMPH # 1.9 10^3/uL (1.5-5.0); LYMPH % 34.6 % (24.0-44.0); MEAN CORPUSCULAR HGB CONC 32.1 g/dl (32.0-36.5); MEAN CORPUSCULAR VOLUME 93.4 fl (80.0-96.0); MONO # 0.5 10^3/uL (0.0-0.8); MONO % 9.8 % (2.0-8.0); NEUTROPHILS # 2.9 10^3/uL (1.5-8.5); NEUTROPHILS % 52.5 % (36.0-66.0); PLATELET COUNT, AUTOMATED 291 10^3/uL (150-450); WHITE BLOOD COUNT 5.4 10^3/uL (4.0-10.0)
[2020-06-29 19:06] LABS: ALBUMIN 3.9 GM/DL (3.2-5.2); ALT/SGPT 33 U/L (12-78); BILIRUBIN,TOTAL 0.3 MG/DL (0.2-1.0); BLOOD UREA NITROGEN 12 MG/DL (7-18); CALCIUM LEVEL 9.5 MG/DL (8.5-10.1); CARBON DIOXIDE LEVEL 28 MEQ/L (21-32); CHLORIDE LEVEL 106 MEQ/L (98-107); CHOLESTEROL LEVEL 171 MG/DL (<200); CHOLESTEROL RISK RATIO 3.109 (<5); CREATININE FOR GFR 0.64 MG/DL (0.55-1.30); GLOMERULAR FILTRATION RATE > 60.0 (>60); GLUCOSE, FASTING 87 MG/DL (70-100); HDL CHOLESTEROL 55 MG/DL (>40); LDL CHOLESTEROL 103 MG/DL (<100); NON-HDL-C 116 MG/DL; POTASSIUM SERUM 4.4 MEQ/L (3.5-5.1); SODIUM LEVEL 139 MEQ/L (136-145); TOTAL PROTEIN 7.5 GM/DL (6.4-8.2); TRIGLYCERIDES LEVEL 64 MG/DL (<150)
[2020-06-30 10:52] LABS: TOTAL 25(OH) VITAMIN D 20.8 NG/ML (30.0-100.0)
[2020-06-30 11:32] LABS: HEPATITIS C VIRUS ABY INDEX 0.1 INDEX (<0.8)
== END ==
LOC: M LAB REF 16:19
PROVIDERS: ATTEND Pediatrics
DX: Z76.89 Persons encountering health services in other specified circumstances (principal); Z11.3 Encounter for screening for infections with a predominantly sexual mode of transmission

== ENCOUNTER → 2020-06-29 | Outpatient (REF) | payer OTHER | LOC: M LAB REF 16:21 | PROVIDERS: ATTEND Pediatrics | DX: N39.0 Urinary tract infection, site not specified (principal); Z11.3 Encounter for screening for infections with a predominantly sexual mode of transmission ==

== ENCOUNTER 2020-12-30 17:12 | Emergency (ER) | payer OTHER ==
[~2020-12-30] VITALS: Ht 160 cm; Wt 101.3 kg
--- OUTSIDE RECORDS SUMMARY | 2020-12-30 17:18 | CCD ---
Author Author [facility] Organization [facility] Address Unknown Phone Unavailable Care Team Providers Care Door Patcher Name Role Phone Jennifer, Leny Unavailable Unavailable Jennifer, Leny Unavailable Unavailable Jennifer, Leny Unavailable Unavailable Jennifer, Leny Unavailable Unavailable Jennifer, Leny Unavailable Unavailable Jennifer, Leny Unavailable Unavailable Jennifer, Leny Unavailable Unavailable Jennifer, Leny Unavailable Unavailable Jennifer, Leny Unavailable Unavailable Jennifer, Leny Unavailable Unavailable Jennifer, Leny Unavailable Unavailable Jennifer, Leny Unavailable Unavailable Jennifer, Leny Unavailable Unavailable Jennifer, Leny Unavailable Unavailable Jennifer, Leny Unavailable Unavailable Jennifer, Leny Unavailable Unavailable Jennifer, Leny Unavailable Unavailable Jennifer, Leny Unavailable Unavailable Jennifer, Leny Unavailable Unavailable Jennifer, Leny Unavailable Unavailable Jennifer, Leny Unavailable Unavailable Jennifer, Leny Unavailable Unavailable Jennifer, Leny Unavailable Unavailable Jennifer, Leny Unavailable Unavailable Jennifer, Leny Unavailable Unavailable Dille, E Siri DDS Unavailable Unavailable Dille, E Siri DDS Unavailable Unavailable Dille, E Siri DDS Unavailable Unavailable Dille, E Siri DDS Unavailable Unavailable Re-disclosure Warning The records that you are about to access may contain information from federally-assisted alcohol or drug abuse programs. If such information is present, then the following federally mandated warning applies: This information has been disclosed to you from records protected by federal confidentiality rules (42 CFR part 2). The federal rules prohibit you from making any further disclosure of this information unless further disclosure is expressly permitted by the written consent of the person to whom it pertains or as otherwise permitted by 42 CFR part 2. A general authorization for the release of medical or other information is NOT sufficient for this purpose. The Federal rules restrict any use of the information to criminally investigate or prosecute any alcohol or drug abuse patient.The records that you are about to access may contain highly sensitive health information, the redisclosure of which is protected by Article 27-F of the [facility] Public Health law. If you continue you may have access to information: Regarding HIV / AIDS; Provided by facilities licensed or operated by the [facility] Office of Mental Health; or Provided by the [facility] Office for People With Developmental Disabilities. If such information is present, then the following [facility] mandated warning applies: This information has been disclosed to you from confidential records which are protected by state law. State law prohibits you from making any further disclosure of this information without the specific written consent of the person to whom it pertains, or as otherwise permitted by law. Any unauthorized further disclosure in violation of state law may result in a fine or shelter sentence or both. A general authorization for the release of medical or other information is NOT sufficient authorization for further disc losure. Family History Family Member Name Family Member Gender Family Member Status Date o f Status Description Data Source(s) Unknown Unknown Problem MEDENT ([facility]) Encounters Encounter Providers Location Date Indications Data Source(s ) Brigitte Rodriguez MD: [address] [place] [id number], Ph. Attender: Brigitte Rodriguez [facility] 12/30/2020 12:00:00 AM EDT [facility]) Brigitte Rodriguez MD: [address] [place] [address], Ph. Attender: Brigitte Rodriguez [facility] 06/29/2020 12:00:00 AM EDT [facility]) Brigitte Rodriguez MD: [address], [place] [address], Ph. Attender: Brigitte Rodriguez [facility] 06/29/2020 12:00:00 AM EDT [facility]) Outpatient Attender: Siri Deleon DDS [facility] 12/12/2019 02:46:00 P M EDT [facility] Outpatient Att[facility]: [facility] 12/12/2019 02:40:00 P M EDT [facility] Outpatient Attender: Siri Deleon DDS [facility] 12/12/2019 01:58:01 P M EDT [facility] Outpatient Attender: Siri Deleon DDS [facility] 12/12/2019 01:57:01 P M EDT [facility] Outpatient Attender: Siri Deleon DDS [facility] 12/12/2019 01:28:00 P M EDT [facility] Outpatient Attender: [facility] 12/12/2019 01:25:00 P M EDT [facility] Outpatient Attender: Siri Deleon DDS [facility] 12/12/2019 01:22:01 P M EDT [facility] Immunizations Vaccine Date Status Description Data Source(s) COVID-19 VACCINE Moderna 12/12/2020 12:00:00 AM EDT completed [facility] Vaccine Series Complete: NOThis Data was Submitted to [facility] Via [employer]os[employer]. Medications Medication Brand Name Start Date Product Form Dose Route Admi nistrative Instructions Pharmacy Instructions Status Indications Reaction Description Data Source(s) 500 mg 11/10/2020 12:00:00 AM EDT capsule 22 TAKE 2 CAPSULES BY MOUTH IMMEDIATELY , THEN TAKE ONE CAPSULE BY MOUTH THREE TIMES A DAY TAKE 2 CAPSULES BY MOUTH IMMEDIATELY , THEN TAKE ONE CAPSULE BY MOUTH THREE TIMES A DAY SOLD: 11/10/2020 [facility] NITROFURANTOIN, MACROCRYSTALS 25 MG / Ni trofurantoin, Monohydrate 75 MG Oral Capsule 100 mg NITROFURANTOIN MONOHYD/M-CRYST 06/29/2020 12:00:00 AM EDT ca psule 14 TAKE ONE CAPSULE BY MOUTH EVERY 12 HOURS WITH FOOD FOR 7 DAYS TAKE ONE CAPSULE BY MOUTH EVERY 12 HOURS WITH FOOD FOR 7 DAYS SOLD: 07/01/2020 [facility] 800 mg 12/12/2019 12:00:00 AM EDT tablet 21 TAKE ONE TABLET BY MOUTH THREE TIMES A DAY FOR 7 DAYS TAKE ONE TABLET BY MOUTH THREE TIMES A DAY FOR 7 DAYS SOLD: 12/12/2019 [facility] Sulfamethoxazole 800 MG / Trimethoprim 160 MG Oral Tab let 800-160 mg SULFAMETHOXAZOLE/TRIMETHOPRIM 12/03/2019 12:00:00 AM EDT tablet 20 TAKE ONE TABLET BY MOUTH TWICE A DAY FOR 10 DAYS TAKE ONE TABLET BY MOUTH TWICE A DAY FOR 10 DAYS SOLD: 12/03/2019 [facility] 300 mg 11/28/2019 12:00:00 AM EDT capsule 14 TAKE ONE CAPSULE BY MOUTH EVERY 12 HOURS FOR 7 DAYS TAKE ONE CAPSULE BY MOUTH EVERY 12 HOURS FOR 7 DAYS SO LD: 11/29/2019 [facility] Sulfamethoxazole 800 MG / Trimethoprim 1 60 MG Oral Tablet sulfamethoxazole 800 mg-trimethoprim 160 mg tablet sulfamethoxazole 800 mg-trimethoprim 160 mg tablet completed sulfame thoxazole 800 MG / trimethoprim 160 MG Oral Tablet MANJIT ([facility]) Amoxicillin 500 MG Oral Capsule amoxicil vicente 500 mg capsule TAKE 2 CAPSULES BY MOUTH IMMEDIATELY THEN TAKE ONE CAPSULE BY MOUTH THREE TIMES A DAY amoxicillin 500 mg capsule TAKE 2 CAPSULES BY MOUTH IMMEDIATELY THEN TAKE ONE CAPSULE BY MOUTH THREE TIMES A DAY completed amoxicillin 500 MG Oral Capsule MANJIT ([facility]) Ibuprofen 800 MG Oral Tablet ibuprofen 8 00 mg tablet TAKE ONE TABLET BY MOUTH THREE TIMES A DAY FOR 7 DAYS ibuprofen 800 mg tablet TAKE ONE TABLET BY MOUTH THREE TIMES A DAY FOR 7 DAYS completed ibuprofen 800 MG Oral Tablet MANJIT ([facility]) NITROFURANTOIN, MACROCRYSTALS 25 MG / Ni trofurantoin, Monohydrate 75 MG Oral Capsule nitrofurantoin monohydrate/macrocrystals 100 mg capsule TAKE ONE CAPSULE BY MOUTH EVERY 12 HOURS WITH FOOD FOR 7 DAYS nitrofurantoin monohydrate/macrocrystals 100 mg capsule TAKE ONE CAPSULE BY MOUTH EVERY 12 HOURS WITH FOOD FOR 7 DAYS completed nitrofurantoin, macrocrystals 25 MG / nitrofurantoin, monohydrate 75 MG Oral Capsule MANJIT ([facility]) Ciprofloxacin 500 MG Oral Tablet ciprofl oxacin 500 mg tablet TAKE ONE TABLET BY MOUTH TWICE A DAY ciprofloxacin 500 mg tablet TAKE ONE TAB LET BY MOUTH TWICE A DAY completed ciprofloxacin 50 0 MG Oral Tablet MANJIT ([facility]) cefdinir 300 MG Oral Capsule cefdinir 30 0 mg capsule TAKE ONE CAPSULE BY MOUTH EVERY 12 HOURS FOR 7 DAYS cefdinir 300 mg capsule TAKE ONE CAPSULE BY MOUTH EVERY 12 HOURS FOR 7 DAYS completed cefdinir 300 MG Oral Capsule JARREAU ([facility]) Ibuprofen 800 MG Oral Tablet ibuprofen 8 00 mg tablet TAKE ONE TABLET BY MOUTH THREE TIMES A DAY FOR 7 DAYS ibuprofen 800 mg tablet TAKE ONE TABLET BY MOUTH THREE TIMES A DAY FOR 7 DAYS completed ibuprofen 800 MG Oral Tablet MANJIT ([facility]) Ciprofloxacin 500 MG Oral Tablet ciprofl oxacin 500 mg tablet TAKE ONE TABLET BY MOUTH TWICE A DAY ciprofloxacin 500 mg tablet TAKE ONE TAB LET BY MOUTH TWICE A DAY completed ciprofloxacin 50 0 MG Oral Tablet JARREAU ([facility]) cefdinir 300 MG Oral Capsule cefdinir 30 0 mg capsule TAKE ONE CAPSULE BY MOUTH EVERY 12 HOURS FOR 7 DAYS cefdinir 300 mg capsule TAKE ONE CAPSULE BY MOUTH EVERY 12 HOURS FOR 7 DAYS completed cefdinir 300 MG Oral Capsule MANJIT ([facility]) Sulfamethoxazole 800 MG / Trimethoprim 1 60 MG Oral Tablet sulfamethoxazole 800 mg-trimethoprim 160 mg tablet sulfamethoxazole 800 mg-trimethoprim 160 mg tablet completed sulfame thoxazole 800 MG / trimethoprim 160 MG Oral Tablet MANJIT ([facility]) Insurance Providers Payer name Policy type / Coverage type Policy ID Covered democrat ID Covered democrat's relationship to mo Policy Mo Plan Information [facility] Health Maintenance Organization ([facility]) [id number] Self [id number] [facility] Health Maintenance Organization ([facility]) [id number] Self [id number] [facility] Health Maintenance Organization (HMO) [id number] Self [id number] [facility] Health Maintenance Organization (HMO) [id number] Self [id number] [facility] [employer] [employer] [facility] [id number] SP [id number] [employer] M[employer] [id number] SP [id number] [employer] M[employer]MO [id number] SP [id number] [employer] MCDHMO [id number] SP [id number] [employer] MCDHMO [id number] SP [id number] [employer] MCDHMO [id number] SP [id number] [employer] MCDHMO [id number] SP [id number] [employer] MCDHMO [id number] SP [id number] [employer] MCDHMO [id number] SP [id number] Managed Care - UHC Community Plan P [id number] S [id number] [facility] O [id number] S [id number] Managed Care - UHC Community Plan P UNAVAILABLE S UNAVAILABLE Managed Care - UHC Community Plan P [id number] S [id number] Medicaid S UNAVAILABLE S UNAVAILA BLE [employer] NO FAULT [id number] [employer] [place] S [id number] S [id number] SELF PAY UNAVAILABLE SP UNAVAILA BLE [facility] [id number] SP [id number] [employer] MCCARTY PLAN [id number] SP [id number] SELF PAY O [id number] S [id number] [facility] BLUE [id number] SP [id number] Problems, Conditions, and Diagnoses Code Display Name Description Problem Type Effective Dates Data Source(s) [id number] History of SARS-CoV-2 History of SARS-CoV-2 Prob andrei 11/24/2020 12:00:00 AM DENNY SARAVIA ([facility]) [id number] History of pre-eclampsia History of Pre-eclampsia P [place] 06/29/2020 12:00:00 AM EDT MANJIT ([facility]) [id number] Recurrent urinary tract infection Recurrent Urin delano Tract Infection Problem 06/29/2020 12:00:00 AM EDT MANJIT ([facility]) [id number] Anxiety Anxiety Problem 06/29/2020 12:00:00 AM ED T MANJIT ([facility]) [id number] History of pre-eclampsia History of Pre-eclampsia P gaurim 06/29/2020 12:00:00 AM EDT MANJIT ([facility]) [id number] Recurrent urinary tract infection Recurrent Urin delano Tract Infection Problem 06/29/2020 12:00:00 AM EDT MANJIT ([facility]) [id number] Anxiety Anxiety Problem 06/29/2020 12:00:00 AM ED T MANJIT ([facility]) 521.03 DENTAL CARIES EXTENDING INTO PULP DENTAL CARIES EXTEND ING INTO PULP 12/12/2019 01:56:37 PM EDT [facility] [id number] Dental caries on smooth surface penetrat ing into pulp Dental Caries on Smooth Surface Penetrating into Pulp Problem 020 12:00:00 AM EDT - 06/26/2020 12:00:00 AM EDT AMNJIT ([facility]) [id number] Dental caries on smooth surface penetrat ing into pulp Dental Caries on Smooth Surface Penetrating into Pulp Problem 020 12:00:00 AM EDT - 06/26/2020 12:00:00 AM EDT MANJIT ([facility]) 800632903 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 Dental Arch Length Loss Secondary to Dental Caries Problem 10/02/2018 12:00:00 AM EDT - 06/26/2020 12:00:00 AM EDT MANJIT ([facility]) 864480993 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 Dental Arch Length Loss Secondary to Dental Caries Problem 10/02/2018 12:00:00 AM EDT - 06/26/2020 12:00:00 AM EDT MANJIT ([facility]) 129221191 Acquired absence of multiple teeth Acquired Abse nce of Multiple Teeth Problem 09/25/2018 12:00:00 AM EDT - 06/26/2020 12:00:00 AM ED T MANJIT ([facility]) 508985849 Acquired absence of multiple teeth Acquired Abse nce of Multiple Teeth Problem 09/25/2018 12:00:00 AM EDT - 06/26/2020 12:00:00 AM ED T MANJIT ([facility]) Surgeries/Procedures No Information Results ID Date Data Source [id number] 12/30/2020 02:46:00 PM EDT MANJIT ([facility]) Name Value Range Interpretation Code Description Data Poonam rce(s) Supporting Document(s) blood neg Blood MANJIT ([facility]) bilirubin neg Bilirubin MANJIT ([facility]) ketone neg Ketone MANJIT ([facility]) glucose neg Glucose MANJIT ([facility]) leukocytes neg Leukocytes MANJIT ([facility]) protein neg Protein MANJIT ([facility]) pH Ph MANJIT ([facility]) nitrite + Abnormal (applies to non-numeric res ults) Nitrite MANJIT ([facility]) specific gravity Specific [place] AT GEMA ([facility]) urobilinogen Urobilinogen JARREAU ([facility]) ID Date Data Source 12/22/2020 12:00:00 AM EDT [facility] Name Value Range Interpretation Code Description Data Poonam rce(s) Supporting Document(s) SARS coronavirus 2 Ag NEGATIVE [facility] This lab was ordered by [facility] MAN Khalil [facility] and reported by [facility]. ID Date Data Source 12/15/2020 12:00:00 AM EDT [facility] Name Value Range Interpretation Code Description Data Poonam rce(s) Supporting Document(s) SARS coronavirus 2 Ag NEGATIVE [facility] This lab was ordered by [facility] MAN Khalil [facility] and reported by [facility]. ID Date Data Source 11/19/2020 12:00:00 AM EDT [facility] Name Value Range Interpretation Code Description Data Poonam rce(s) Supporting Document(s) SARS coronavirus 2 Ag NEGATIVE [facility] This lab was ordered by [facility]il [facility] and reported by [facility]. ID Date Data Source [id number] 11/17/2020 12:00:00 AM EDT [facility] Name Value Range Interpretation Code Description Data Poonam rce(s) Supporting Document(s) SARS-CoV2 Rapid Antigen Negative [facility] This lab was ordered by [facility] AN [facility] and reported by [facility]. ID Date Data Source [id number] 06/29/2020 10:59:00 AM EDT JARREAU ([facility]) Name Value Range Interpretation Code Description Data Poonam rce(s) Supporting Document(s) HIV 1&2 screen centaur negative negative HIV 1&2 Scree n Centaur JARREAU ([facility]) ID Date Data Source [id number] 06/29/2020 10:59:00 AM EDT JARREAU ([facility]) Name Value Range Interpretation Code Description Data Poonam rce(s) Supporting Document(s) syphilis nonreactive nonreactive Syphilis MANJIT ([facility]) ID Date Data Source [id number] 06/29/2020 10:59:00 AM EDT JARREAU ([facility]) Name Value Range Interpretation Code Description Data Poonam rce(s) Supporting Document(s) total 25(oh) vitamin D 20.8 NG/mL 30.0-100.0 Below low normal T otal 25(Oh) Vitamin D MANJIT ([facility]) ID Date Data Source [id number] 06/29/2020 10:59:00 AM EDT [facility]) Name Value Range Interpretation Code Description Data Poonam rce(s) Supporting Document(s) HDL cholesterol 55 mg/dL >40 HDL Cholesterol ATHE NA ([facility]) Cholesterol in LDL [Mass/volume] in Serum or Plasma 103 mg/dL <100 Above high normal LDL Cholesterol MANJIT ([facility]) triglycerides level 64 mg/dL <150 Triglycerides [place] MANJIT ([facility]) cholesterol level 171 mg/dL <200 Cholesterol Level MANJIT ([facility]) non-HDL-C 116 mg/dL Non-hdl-c MANJIT ([facility]) cholesterol risk ratio <5 Cholesterol R isk Ratio MANJIT ([facility]) ID Date Data Source [id number] 06/29/2020 10:59:00 AM EDT MANJIT ([facility]) Name Value Range Interpretation Code Description Data Poonam rce(s) Supporting Document(s) hepatitis C virus valerie index 0.1 index <0.8 Hepatiti s C Virus Valerie Index MANJIT ([facility]) ID Date Data Source [id number] 06/29/2020 10:59:00 AM EDT MANJIT ([facility]) Name Value Range Interpretation Code Description Data Poonam rce(s) Supporting Document(s) glucose, fasting 87 mg/dL 70-100 Glucose, Fasting AT [facility]) blood urea nitrogen 12 mg/dL 7-18 Blood Urea Nitro gen MANJIT ([facility]) creatinine for GFR 0.64 mg/dL 0.55-1.30 Creatinine for GF R MANJIT ([facility]) glomerular filtration rate > 60.0 >60 Glomerula r Filtration Rate MANJIT ([facility]) chloride level 106 mEq/L 98-107 Chloride Level MANJIT ([facility]) sodium level 139 mEq/L 136-145 Sodium Level MANJIT ([facility]) carbon dioxide level 28 mEq/L 21-32 Carbon Dioxide Level MANJIT ([facility]) potassium serum 4.4 mEq/L 3.5-5.1 Potassium Serum ATHE NA ([facility]) calcium level 9.5 mg/dL 8.5-10.1 Calcium Level MANJIT ( [facility]) ALT/SGPT 33 U/L 12-78 ALT/SGPT MANJIT ([facility]) AST/SGOT 17 U/L 7-37 AST/SGOT MANJIT ([facility]) anion gap 5 mEq/L 8-16 Below low normal Anion Gap MANJIT ( [facility]) bilirubin,total 0.3 mg/dL 0.2-1.0 Bilirubin,total ATHE NA ([facility]) alkaline phosphatase 77 U/L 45-117 Alkaline Phosph atase MANJIT ([facility]) total protein 7.5 gm/dL 6.4-8.2 Total Protein MANJIT ( [facility]) albumin 3.9 gm/dL 3.2-5.2 Albumin MANJIT ([facility]) albumin/globulin ratio 1.2-2.2 Below low normal Albumin /globulin Ratio MANJIT ([facility]) ID Date Data Source [id number] 06/29/2020 10:59:00 AM EDT JARREAU ([facility]) Name Value Range Interpretation Code Description Data Poonam rce(s) Supporting Document(s) white blood count 5.4 10 4.0-10.0 White Blood Count MANJIT ([facility]) hemoglobin 13.2 g/dL 12.0-15.5 Hemoglobin MANJIT ([facility]) red blood count 4.40 10 4.00-5.40 Red Blood Count ATHE ([facility]) mean corpuscular volume 93.4 fL 80.0-96.0 Mean Corpusc ular Volume MANJIT ([facility]) hematocrit 41.1 % 36.0-47.0 Hematocrit MANJIT ([facility]) mean corpuscular hemoglobin 30.0 pg 27.0-33.0 Mean Cor puscular Hemoglobin MANJIT ([facility]) mean corpuscular HGB conc 32.1 g/dL 32.0-36.5 Mean Corpu scular HGB Conc MANJIT ([facility]) red cell distribution width 12.1 % 11.5-14.5 Red Cell Distribution Width MANJIT ([facility]) neutrophils % 52.5 % 36.0-66.0 Neutrophils % MANJIT ( [facility]) platelet count, automated 291 10 150-450 [facility] C [facility]unt, [facility] mono % 9.8 % 2.0-8.0 Above high normal [place] % MANJIT ([facility]) eos % 2.2 % 0.0-3.0 Eos % MANJIT ([facility]) lymph % 34.6 % 24.0-44.0 Lymph % MANJIT ([facility]) immature granulocyte % 0.2 % 0-3.0 Immature Gran ulocyte % MANJIT ([facility]) baso % 0.7 % 0.0-1.0 Baso % MANJIT ([facility]) nucleated red blood cell % 0.0 % 0-0 Nucleated Red Blood Cell % MANJIT ([facility]) eos # 0.1 10 0.0-0.5 Eos # MANJIT ([facility]) mono # 0.5 10 0.0-0.8 [place] # JARREAU ([facility]) neutrophils # 2.9 10 1.5-8.5 Neutrophils # MANJIT ( [facility]) lymph # 1.9 10 1.5-5.0 Lymph # MANJIT ([facility]) baso # 0.0 10 0.0-0.2 Baso # MANJIT ([facility]) ID Date Data Source [id number] 06/29/2020 10:22:00 AM EDT JARREAU ([facility]) Name Value Range Interpretation Code Description Data Poonam rce(s) Supporting Document(s) blood neg Blood MANJIT ([facility]) glucose neg Glucose MANJIT ([facility]) bilirubin neg Bilirubin MANJIT ([facility]) leukocytes neg Leukocytes MANJIT ([facility]) ketone neg Ketone MANJIT ([facility]) nitrite + Abnormal (applies to non-numeric res ults) Nitrite MANJIT ([facility]) protein neg Protein MANJIT ([facility]) pH Ph MANJIT ([facility]) urobilinogen Urobilinogen MANJIT ([facility]) specific gravity Specific [place] Falls AT [facility] ([facility]) ID Date Data Source [id number] 06/29/2020 10:22:00 AM EDT MANJIT ([facility]) Name Value Range Interpretation Code Description Data Poonam rce(s) Supporting Document(s) blood neg Blood [facility]IT ([facility]) bilirubin neg Bilirubin [facility] ([facility]) glucose neg Glucose [facility] ([facility]) nitrite + Abnormal (applies to non-numeric res ults) Nitrite [facility] ([facility]) leukocytes neg Leukocytes [facility] ([facility]) ketone neg Ketone [facility] ([facility]) pH Ph [facility] ([facility]) protein neg Protein [facility] ([facility]) specific gravity Specific [place] AT [place] ([facility]) urobilinogen Urobilinogen JARREAU ([facility]) ID Date Data Source [id number] 06/29/2020 10:20:00 AM EDT [facility] ([facility]) Name Value Range Interpretation Code Description Data Poonam rce(s) Supporting Document(s) chlamydia DNA probe negative negative Chlamydia DNA Pr obe JARREAU ([facility]) GC DNA probe negative negative GC DNA Probe [facility] ([facility]) ID Date Data Source [id number] 06/29/2020 10:20:00 AM EDT JARREAU ([facility]) Name Value Range Interpretation Code Description Data Poonam rce(s) Supporting Document(s) ID Date Data Source [id number] 06/29/2020 10:20:00 AM EDT [facility]) Name Value Range Interpretation Code Description Data Poonam rce(s) Supporting Document(s) trichomonas vaginalis (amp) not detected negative Tricho monas Vaginalis (Amp) [facility]) ID Date Data Source [id number] 12/12/2019 01:22:52 PM EDT [facility] Current Problems: DENTAL CARIES EXTENDIN G INTO PULP (ICD-521.03) (ICD10- K02.63)Dental caries (ICD-521.00) (OWD55-L35.9)Teeth extraction (ICD-525.10) (BNO04-J25.499)Problem list reviewed during this update.Medication list reviewed during this update.No known medications.Allergy list reviewed during this update.No known allergies. Dental Chart: Procedures:Type - CDT Code - Description B - (D0330) Panoramic film (Performed by Siri Deleon DDS) B - (D0140) Limited oral evaluation - problem focused on Tooth # 1 (Performed by Siri Deleon DDS) Existing:Type - CDT Code - Desc ription[E] Missing - [place] and Root On #3 Surface O Region XR Chart Notes:soniya (Dec 12 2019 1:56PM): Additional PPE requirements due to COVID-19 in the dental setting, N95, surgical mask, hair covering, gown and shield.S: CC:I've had a lot of pain on the right side of my face. I went to urgent care 2 weeks ago and they put me on antibiotics for a sinus infection, I went to urgent care last night . They told me to stop taking the antibiotics and to see a dentist for xrays.O: RMHx (-)Per Pt HPI: [address]: 10+ at times BP: 123/88 P: 96, PANO #1 caries into pulp,neg on palpation, nrgative pecussion. Decay noted on radiograph and clinically. A: RACHELS recommends extraction of all wisdom teeth , DX: decay # 1 , non restorableP:Refer to OS for extraction of all wisdom teeth.Informed Pt about new pain management policy of the clinic regarding about narcotic,told pt to alternate Ibuprophen 600- 800mg and tylenol 500mg every 4 to 6 hrs for pain when needed. Assisted By: NV: Daily/Yaritza Archer DDS by soniya (12/12/2019 1:54 PM): Tooth Notes and Watches:- Tooth 1 Note: Referred to Siri Holt DDS by callum (12/12/2019 1:45 PM): - Tooth 16 Note: Referred to Siri Holt DDS by callum (12/12/2019 1:45 PM): - Tooth 17 Note: Referred to Siri Holt DDS by callum (12/12/2019 1:45 PM): - Tooth 32 Note: Referred to Siri Holt DDS by callum (12/12/2019 1:45 PM): Assessment & Plan Problems:Added: DENTAL CARIES EXTENDING INTO PULP (ICD- 521.03) (ZJO92-J15.63)Allergies:No Known Allergies (updated 12/12/2019) Orders:Oral Surgery Referral [[id number]] Name Value Range Interpretation Code Description Data Poonam rce(s) Supporting Document(s) Procedure Social History No Information Vital Signs ID Date Data Source UNK Name Value Range Interpretation Code Description Data Source(s) Diastolic blood pressure 86 mm[Hg] 86 mm[Hg] [facility]) Body height 63 [in_i] 63 [in_i] [facility]) Body mass index (BMI) [Ratio] 39.8 kg/m2 39.8 k g/m2 [facility] ([facility]) Systolic blood pressure 135 mm[Hg] 135 mm[Hg] A [facility] ([facility]) Body weight 3592 [oz_av] 3592 [oz_av] MAN[facility]IT ([facility]) Diastolic blood pressure 83 mm[Hg] 83 mm[Hg] MAN[facility] ([facility]) Body height 63 [in_i] 63 [in_i] [facility] ([facility]) Body mass index (BMI) [Ratio] 38.9 kg/m2 38.9 k g/m2 [facility] ([facility]) Systolic blood pressure 117 mm[Hg] 117 mm[Hg] A [facility]) Body weight 3516.8 [oz_av] 3516.8 [oz_av] ATHLIANE A ([facility]) Diastolic blood pressure 83 mm[Hg] 83 mm[Hg] MANJIT ([facility]) Body height 63 [in_i] 63 [in_i] MANJIT ([facility]) Body mass index (BMI) [Ratio] 38.9 kg/m2 38.9 k g/m2 [facility] ([facility]) Systolic blood pressure 117 mm[Hg] 117 mm[Hg] [place] THENA ([facility]) Body weight 3516.8 [oz_av] 3516.8 [oz_av] ATHLIANE A ([facility]) Patient Treatment Plan of Care Planned Activity Planned Date Details Description Data Source (s) Sulfamethoxazole 800 MG / Trimethoprim 160 MG Oral Tablet MANJIT ([facility]) NITROFURANTOIN, MACROCRYSTALS 25 MG / Ni trofurantoin, Monohydrate 75 MG Oral Capsule [facility] ([facility]) Ibuprofen 800 MG Oral Tablet MANJIT ([facility]) Ciprofloxacin 500 MG Oral Tablet MANJIT ([facility]) cefdinir 300 MG Oral Capsule MANJIT ([facility]) Amoxicillin 500 MG Oral Capsule [facility] ([facility]) Sulfamethoxazole 800 MG / [facility]oprim 160 [facility] Ibuprofen 800 MG Oral Tablet [facility] ([facility]) Ciprofloxacin 500 MG Oral Tablet [facility]IT ([facility]) cefdinir 300 MG Oral Capsule [facility]IT ([facility])
[2020-12-30 18:03] LABS: BASO # 0.1 10^3/uL (0.0-0.2); BASO % 0.5 % (0.0-1.0); EOS # 0.1 10^3/uL (0.0-0.5); EOS % 0.7 % (0.0-3.0); LYMPH # 2.3 10^3/uL (1.5-5.0); LYMPH % 24.3 % (24.0-44.0); MEAN CORPUSCULAR HEMOGLOBIN 29.3 pg (27.0-33.0); MEAN CORPUSCULAR HGB CONC 32.5 g/dl (32.0-36.5); MEAN CORPUSCULAR VOLUME 90.1 fl (80.0-96.0); MONO # 0.6 10^3/uL (0.0-0.8); MONO % 6.5 % (2.0-8.0); NEUTROPHILS # 6.5 10^3/uL (1.5-8.5); NEUTROPHILS % 67.9 % (36.0-66.0); PLATELET COUNT, AUTOMATED 290 10^3/uL (150-450); RED BLOOD COUNT 4.44 10^6/uL (4.00-5.40); WHITE BLOOD COUNT 9.5 10^3/uL (4.0-10.0)
--- NOTE | 2020-12-30 18:03 | REP ---
INDICATION: CHEST PAIN. COMPARISON: 12/30/2020 3:46 p.m. TECHNIQUE: Single portable AP view of the chest was performed. FINDINGS: There is no acute infiltrate or pulmonary edema. Lungs are clear. The heart is not significantly enlarged. The mediastinal silhouette is unremarkable. The visualized osseous structures are intact. IMPRESSION: No acute pulmonary disease. <Electronically signed by Sergey Bahena > 12/30/20 [id number]
--- OUTSIDE RECORDS SUMMARY | 2020-12-30 18:15 | CCD ---
Author Author [facility] Organization [facility] Address Unknown Phone Unavailable Care Team Providers Care Mortgage Loan Officer Originator Name Role Phone Jennifer, Leny Unavailable Unavailable [...] is protected by Article 27-F of the [facility] Public Health law. If you continue you may have access to information: Regarding HIV / AIDS; Provided by facilities licensed or operated by the [facility] Office of Mental Health; or Provided by the [facility] Office for People With Developmental Disabilities. If such information is present, then the following [facility] mandated warning applies: This information has been [...] law may result in a fine or detention sentence or both. A general authorization for the release of medical or other information is NOT sufficient authorization for further disc losure. Family History Family Member Name Family Member Gender Family Member Status Date o f Status Description Data Source(s) Unknown Unknown Problem [facility] ([facility]) Encounters Encounter Providers Location Date Indications Data Source(s ) Brigitte Rodriguez MD: [address] [place] [phone], Ph. Attender: Brigitte Rodriguez [facility] 12/30/2020 12:00:00 AM EDT [facility]) Brigitte Rodriguez MD: [address] [place] [address], Ph. Attender: Brigitte Rodriguez [facility] 06/29/2020 12:00:00 AM EDT [facility]) Brigitte Rodriguez MD: [address], [place] [address], Ph. Attender: Brigitte Rodriguez [facility] Medical 06/29/2020 12:00:00 AM EDT [facility]) Outpatient Attender: Siri Deleon DDS [facility] 12/12/2019 02:46:00 P M EDT [facility] Outpatient [facility]: [facility] 12/12/2019 02:40:00 P M EDT [facility] Outpatient Attender: Siri Deleon DDS [facility] 12/12/2019 01:58:01 P M EDT [facility] Outpatient Attender: Siri Deleon DDS [facility] 12/12/2019 01:57:01 P M EDT [facility] Outpatient Attender: Siri Deleon DDS [facility] 12/12/2019 01:28:00 P M EDT [facility] Outpatient Att[facility]: [facility] 12/12/2019 01:25:00 P M EDT [facility] Outpatient Attender: Siri Deleon DDS [facility] 12/12/2019 01:22:01 P M EDT [facility] Immunizations Vaccine Date Status Description Data Source(s) COVID-19 VACCINE Moderna 12/12/2020 12:00:00 AM EDT completed [facility] Vaccine Series Complete: NOThis Data was Submitted to [facility] Via [employer]. Medications Medication Brand Name Start Date Product [...] MOUTH THREE TIMES A DAY SOLD: 11/10/2020 [facility] NITROFURANTOIN, MACROCRYSTALS 25 MG / Ni [...] A DAY FOR 10 DAYS SOLD: 12/03/2019 [facility] 300 mg 11/28/2019 12:00:00 AM EDT capsule 14 TAKE ONE CAPSULE BY MOUTH EVERY 12 HOURS FOR 7 DAYS TAKE ONE CAPSULE BY MOUTH EVERY 12 HOURS FOR 7 DAYS SO LD: 11/29/2019 [facility] Sulfamethoxazole 800 MG / Trimethoprim 1 60 MG Oral Tablet sulfamethoxazole 800 mg-trimethoprim 160 mg tablet sulfamethoxazole 800 mg-trimethoprim 160 mg tablet completed sulfame thoxazole 800 MG / trimethoprim 160 MG Oral Tablet MANJIT ([facility]) Amoxicillin 500 MG Oral Capsule amoxicil vicente 500 mg capsule TAKE 2 CAPSULES BY MOUTH IMMEDIATELY THEN TAKE ONE CAPSULE BY MOUTH THREE TIMES A DAY amoxicillin 500 mg capsule TAKE 2 CAPSULES BY MOUTH IMMEDIATELY THEN TAKE ONE CAPSULE BY MOUTH THREE TIMES A DAY completed amoxicillin 500 MG Oral Capsule MANJIT ([facility]) Ibuprofen 800 MG Oral Tablet ibuprofen 8 00 mg tablet TAKE ONE TABLET BY MOUTH THREE TIMES A DAY FOR 7 DAYS ibuprofen 800 mg tablet TAKE ONE TABLET BY MOUTH THREE TIMES A DAY FOR 7 DAYS completed ibuprofen 800 MG Oral Tablet [facility] ([facility]) NITROFURANTOIN, MACROCRYSTALS 25 MG / Ni trofurantoin, Monohydrate 75 MG Oral Capsule nitrofurantoin monohydrate/macrocrystals 100 mg capsule TAKE ONE CAPSULE BY MOUTH EVERY 12 HOURS WITH FOOD FOR 7 DAYS nitrofurantoin monohydrate/macrocrystals 100 mg capsule TAKE ONE CAPSULE BY MOUTH EVERY 12 HOURS WITH FOOD FOR 7 DAYS completed nitrofurantoin, macrocrystals 25 MG / nitrofurantoin, monohydrate 75 MG Oral Capsule MANJIT ([facility]) Ciprofloxacin 500 MG Oral Tablet ciprofl oxacin 500 mg tablet TAKE ONE TABLET BY MOUTH TWICE A DAY ciprofloxacin 500 mg tablet TAKE ONE TAB LET BY MOUTH TWICE A DAY completed ciprofloxacin 50 0 MG Oral Tablet MANJIT ([facility]) cefdinir 300 MG Oral Capsule cefdinir 30 0 mg capsule TAKE ONE CAPSULE BY MOUTH EVERY 12 HOURS FOR 7 DAYS cefdinir 300 mg capsule TAKE ONE CAPSULE BY MOUTH EVERY 12 HOURS FOR 7 DAYS completed cefdinir 300 MG Oral Capsule [place] ([facility]) Ibuprofen 800 MG [...] completed ciprofloxacin 50 0 MG Oral Tablet [place] ([facility]) cefdinir 300 MG Oral Capsule [...] type / Coverage type Policy ID Covered republican ID Covered republican's relationship to mo Policy Mo Plan Information [facility] Health Maintenance Organization ([facility]) [id number] Self [id number] [facility] Health Maintenance Organization ([facility]) [id number] Self [id number] [facility] Health Maintenance Organization (HMO) [id number] Self [id number] [facility] Health Maintenance Organization (HMO) [id number] Self [id number] [employer] M[employer] [id number] SP [id number] [employer] M[employer] [id number] SP [id number] [employer] MCDHMO [id number] SP [id number] [employer] COMM[employer]ITY PLAN MCDHMO [id number] SP [id number] [employer] COMM[employer]AN MCDHMO [id number] SP [id number] [employer] COMM[employer]ITY PLAN MCDHMO [id number] SP [id number] [employer] COMM[employer]ITY PLAN MCDHMO [id number] SP [id number] [employer] COMM[employer]ITY PLAN MCDHMO [id number] SP [id number] [employer] COMMUNITY PLAN MCDHMO [id number] SP [id number] Managed Care - UHC Community Plan P [id number] S [id number] [facility]CA[facility]) O [id number] S [id number] Managed Care - UHC Community Plan P UNAVAILABLE S UNAVAILABLE Managed Care - UHC Community Plan P [id number] S [id number] Medicaid S UNAVAILABLE S UNAVAILA BLE [employer] NO FAULT [id number] [employer] NF S [id number] S [id number] SELF PAY UNAVAILABLE SP UNAVAILA BLE [facility] [id number] SP [id number] BLUE [employer] MCCARTY PLAN [id number] SP [id number] SELF PAY O [id number] S [id number] [facility] BLUE [id number] SP [id number] Problems, Conditions, and Diagnoses Code Display Name Description Problem Type Effective Dates Data Source(s) [id number] History of SARS-CoV-2 History of SARS-CoV-2 Prob andrei 11/24/2020 12:00:00 AM DENNY SARAVIA ([facility]) [id number] History of pre-eclampsia History of Pre-eclampsia P [place] 06/29/2020 12:00:00 AM EDT MANJIT ([facility]) [id number] Recurrent urinary tract infection Recurrent Urin delano Tract Infection Problem 06/29/2020 12:00:00 AM EDT [facility]JIT ([facility]) [id number] Anxiety Anxiety Problem 06/29/2020 12:00:00 AM ED T MANJIT ([facility]) [id number] History of pre-eclampsia History of Pre-eclampsia P gaurim 06/29/2020 12:00:00 AM EDT MANJIT ([facility]) [id number] Recurrent urinary tract infection Recurrent Urin delano Tract Infection Problem 06/29/2020 12:00:00 AM EDT MANJIT ([facility]) [id number] Anxiety Anxiety Problem 06/29/2020 12:00:00 AM ED T MANJIT ([facility]) 521.03 DENTAL CARIES EXTENDING INTO PULP DENTAL CARIES EXTEND ING INTO PULP 12/12/2019 01:56:37 PM EDT [facility] [id number] Dental caries on smooth surface penetrat ing into pulp Dental Caries on Smooth Surface Penetrating into Pulp Problem 020 12:00:00 AM EDT - 06/26/2020 12:00:00 AM EDT MANJIT ([facility]) [id number] Dental caries on smooth surface penetrat ing into pulp Dental Caries on Smooth Surface Penetrating into Pulp Problem 020 12:00:00 AM EDT - 06/26/2020 12:00:00 AM EDT MANJTI ([facility]) 101608770 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 Dental Arch Length Loss Secondary to Dental Caries Problem 10/02/2018 12:00:00 AM EDT - 06/26/2020 12:00:00 AM EDT MANJIT ([facility]) 881087962 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 Dental Arch Length Loss Secondary to Dental Caries Problem 10/02/2018 12:00:00 AM EDT - 06/26/2020 12:00:00 AM EDT MANJIT ([facility]) [id number] Acquired absence of multiple teeth Acquired Abse nce of Multiple Teeth Problem 09/25/2018 12:00:00 AM EDT - 06/26/2020 12:00:00 AM ED T MANJIT ([facility]) 140682710 Acquired absence of multiple teeth Acquired Abse nce of Multiple Teeth Problem 09/25/2018 12:00:00 AM EDT - 06/26/2020 12:00:00 AM ED T MANJIT ([facility]) Surgeries/Procedures No Information Results ID Date Data Source [id number] 12/30/2020 02:46:00 PM EDT MANJIT ([facility]) Name Value Range Interpretation Code Description Data Poonam rce(s) Supporting Document(s) blood neg Blood [facility]JIT ([facility]) bilirubin neg Bilirubin [facility] ([facility]) ketone neg Ketone [facility] ([facility]) glucose neg Glucose [facility]JIT ([facility]) leukocytes neg Leukocytes [facility]IT ([facility]) protein neg Protein [facility]JIT ([facility]) pH Ph MANJIT ([facility]) nitrite + Abnormal (applies to non-numeric res ults) Nitrite MANJIT ([facility]) specific gravity Specific [place] [facility] ([facility]) urobilinogen Urobilinogen [place] ([facility]) ID Date Data Source 12/22/2020 12:00:00 AM EDT [facility] Name Value Range Interpretation Code Description Data Poonam rce(s) Supporting Document(s) SARS coronavirus 2 Ag NEGATIVE [facility] This lab was ordered by [facility] and reported by [facility]. ID Date Data Source 12/15/2020 12:00:00 AM EDT [facility] Name Value Range Interpretation Code Description Data Poonam rce(s) Supporting Document(s) SARS coronavirus 2 Ag NEGATIVE [facility] This lab was ordered by [facility] and reported by [facility]. ID Date Data Source 11/19/2020 12:00:00 [...] Negative [facility] This lab was ordered by [facility] and reported by [facility]. ID Date Data Source [id number] 06/29/2020 10:59:00 AM EDT [place] ([facility]) Name Value Range Interpretation Code Description Data Poonam rce(s) Supporting Document(s) HIV 1&2 screen centaur negative negative HIV 1&2 Scree n Centaur [place] ([facility]) ID Date Data Source [id number] 06/29/2020 10:59:00 AM EDT [place] ([facility]) Name Value Range Interpretation Code Description Data Poonam rce(s) Supporting Document(s) syphilis nonreactive nonreactive Syphilis [facility] ([facility]) ID Date Data Source [id number] 06/29/2020 10:59:00 AM EDT [place] ([facility]) Name Value Range Interpretation Code Description Data Poonam rce(s) Supporting Document(s) total 25(oh) vitamin D 20.8 NG/mL 30.0-100.0 Below low normal T otal 25(Oh) Vitamin D MANJIT ([facility]) ID Date Data Source [id number] 06/29/2020 10:59:00 AM EDT [facility]) Name Value Range Interpretation Code Description Data Poonam rce(s) Supporting Document(s) HDL cholesterol 55 mg/dL >40 HDL Cholesterol ATHE NA ([facility]) Cholesterol in LDL [Mass/volume] in Serum or Plasma 103 mg/dL <100 Above high normal LDL Cholesterol [facility] ([facility]) triglycerides level 64 mg/dL <150 Triglycerides [place] MANJIT ([facility]) cholesterol level 171 mg/dL <200 Cholesterol Level [facility] ([facility]) non-HDL-C 116 mg/dL Non-hdl-c [facility] ([facility]) cholesterol risk ratio <5 Cholesterol R isk Ratio [facility] ([facility]) ID Date Data Source [id number] 06/29/2020 10:59:00 AM EDT [facility] ([facility]) Name Value Range Interpretation Code Description Data Poonam rce(s) Supporting Document(s) hepatitis C virus valerie index 0.1 index <0.8 Hepatiti s C Virus Valerie Index [facility] ([facility]) ID Date Data Source [id number] 06/29/2020 10:59:00 AM EDT MANJ[facility] ([facility]) Name Value Range Interpretation Code Description Data Poonam rce(s) Supporting Document(s) glucose, fasting 87 mg/dL 70-100 Glucose, Fasting AT [facility]) blood urea nitrogen 12 mg/dL 7-18 Blood Urea Nitro gen MANJIT ([facility]) creatinine for GFR 0.64 mg/dL 0.55-1.30 Creatinine for GF R MANJIT ([facility]) glomerular filtration rate > 60.0 >60 Glomerula r Filtration Rate [facility] ([facility]) chloride level 106 mEq/L 98-107 Chloride Level [facility] ([facility]) sodium level 139 mEq/L 136-145 Sodium Level MANJIT (No [facility]) carbon dioxide level 28 mEq/L 21-32 Carbon Dioxide Level [facility] ([facility]) potassium serum 4.4 mEq/L 3.5-5.1 Potassium Serum ATHE NA ([facility]) calcium level 9.5 mg/dL 8.5-10.1 Calcium Level MANJIT ( [facility]) ALT/SGPT 33 U/L 12-78 ALT/SGPT [facility] ([facility]) AST/SGOT 17 U/L 7-37 AST/SGOT [facility] ([facility]) anion gap 5 mEq/L 8-16 Below low normal Anion Gap MANJIT ( [facility]) bilirubin,total 0.3 mg/dL 0.2-1.0 Bilirubin,total ATHE NA ([facility]) alkaline phosphatase 77 U/L 45-117 Alkaline Phosph atase MANJIT ([facility]) total protein 7.5 gm/dL 6.4-8.2 Total Protein MANJIT ( [facility]) albumin 3.9 gm/dL 3.2-5.2 Albumin [facility] ([facility]) albumin/globulin ratio 1.2-2.2 Below low normal Albumin /globulin Ratio [facility]IT ([facility]) ID Date Data Source [id number] 06/29/2020 10:59:00 AM EDT [place] ([facility]) Name Value Range Interpretation Code Description Data Poonam rce(s) Supporting Document(s) white blood count 5.4 10 4.0-10.0 White Blood Count MANJIT ([facility]) hemoglobin 13.2 g/dL 12.0-15.5 Hemoglobin MANJIT ([facility]) red blood count 4.40 10 4.00-5.40 Red Blood Count ATHE ([facility]) mean corpuscular volume 93.4 fL 80.0-96.0 Mean Corpusc ular Volume [facility]JIT ([facility]) hematocrit 41.1 % 36.0-47.0 Hematocrit [facility] ([facility]) mean corpuscular hemoglobin 30.0 pg 27.0-33.0 Mean Cor puscular Hemoglobin [facility] ([facility]) mean corpuscular HGB conc 32.1 g/dL 32.0-36.5 Mean Corpu scular HGB Conc [facility] ([facility]) red cell distribution width 12.1 % 11.5-14.5 Red Cell Distribution Width [facility] ([facility]) neutrophils % 52.5 % 36.0-66.0 Neutrophils % MANJIT ( [facility]) platelet count, automated 291 10 150-450 Platelet C ount, Automated [facility] mono % 9.8 % 2.0-8.0 Above high normal [place] % [facility]JIT ([facility]) eos % 2.2 % 0.0-3.0 Eos % MANJIT ([facility]) lymph % 34.6 % 24.0-44.0 Lymph % MNAJIT ([facility]) immature granulocyte % 0.2 % 0-3.0 Immature Gran ulocyte % MANJIT ([facility]) baso % 0.7 % 0.0-1.0 Baso % [facility] ([facility]) nucleated red blood cell % 0.0 % 0-0 Nucleated Red Blood Cell % [facility] ([facility]) eos # 0.1 10 0.0-0.5 Eos # [facility]IT ([facility]) mono # 0.5 10 0.0-0.8 [place] # [place] ([facility]) neutrophils # 2.9 10 1.5-8.5 Neutrophils # MANJIT ( [facility]) lymph # 1.9 10 1.5-5.0 Lymph # [facility]JIT ([facility]) baso # 0.0 10 0.0-0.2 Baso # [facility]IT ([facility]) ID Date Data Source [id number] 06/29/2020 10:22:00 AM EDT [place] ([facility]) Name Value Range Interpretation Code Description Data Poonam rce(s) Supporting Document(s) blood neg Blood [facility]JIT ([facility]) glucose neg Glucose [facility] ([facility]) bilirubin neg Bilirubin [facility] ([facility]) leukocytes neg Leukocytes [facility] ([facility]) ketone neg Ketone [facility] ([facility]) nitrite + Abnormal (applies to non-numeric res ults) Nitrite [facility] ([facility]) protein neg Protein [facility] ([facility]) pH Ph [facility] ([facility]) urobilinogen Urobilinogen [facility] ([facility]) specific gravity Specific [place] AT [facility] ([facility]) ID Date Data Source [id number] 06/29/2020 10:22:00 AM EDT [facility] ([facility]) Name Value Range Interpretation Code Description Data Poonam rce(s) Supporting Document(s) blood neg Blood [facility]JIT ([facility]) bilirubin neg Bilirubin [facility] ([facility]) glucose neg Glucose [facility] ([facility]) nitrite + Abnormal (applies to non-numeric res ults) Nitrite [facility] ([facility]) leukocytes neg Leukocytes [facility] ([facility]) ketone neg Ketone [facility] ([facility]) pH Ph [facility] ([facility]) protein neg Protein [facility] ([facility]) specific gravity Specific [place] [facility] ([facility]) urobilinogen Urobilinogen [place] ([facility]) ID Date Data Source [id number] 06/29/2020 10:20:00 AM EDT [facility]JIT ([facility]) Name Value Range Interpretation Code Description Data Poonam rce(s) Supporting Document(s) chlamydia DNA probe negative negative Chlamydia DNA Pr obe [place] ([facility]) GC DNA probe negative negative GC DNA Probe [facility] ([facility]) ID Date Data Source [id number] 06/29/2020 10:20:00 AM EDT [place] ([facility]) Name Value Range Interpretation Code Description Data Poonam rce(s) Supporting Document(s) ID Date Data Source [id number] 06/29/2020 10:20:00 AM EDT [facility]) Name Value Range Interpretation Code Description Data Poonam rce(s) Supporting Document(s) trichomonas vaginalis (amp) not detected negative Tricho monas Vaginalis (Amp) [facility]) ID Date Data Source [id number] 12/12/2019 01:22:52 PM EDT [facility] Current Problems: DENTAL CARIES EXTENDIN G INTO PULP (ICD-521.03) (ICD10- K02.63)Dental caries (ICD-521.00) (CAY66-H12.9)Teeth extraction (ICD-525.10) (TIQ19-J19.499)Problem list reviewed during this update.Medication list reviewed [...] CDT Code - Desc ription[E] Missing - [place] and Root On #3 Surface O Region [...] DENTAL CARIES EXTENDING INTO PULP (ICD- 521.03) (EDI33-U08.63)Allergies:No Known Allergies (updated 12/12/2019) Orders:Oral Surgery Referral [[id number]] Name Value Range Interpretation Code Description Data Poonam rce(s) Supporting Document(s) Procedure Social History No Information Vital Signs ID Date Data Source [id number] Name Value Range Interpretation Code Description Data Source(s) Diastolic blood pressure 86 mm[Hg] 86 mm[Hg] [facility] Body height 63 [in_i] 63 [in_i] [facility] ([facility]) Body mass index (BMI) [Ratio] 39.8 kg/m2 39.8 k g/m2 [facility] ([facility]) Systolic blood pressure 135 mm[Hg] 135 mm[Hg] A [facility] ([facility]) Body weight 3592 [oz_av] 3592 [oz_av] [facility]JIT ([facility]) Diastolic blood pressure 83 mm[Hg] 83 mm[Hg] MAN[facility]IT ([facility]) Body height 63 [in_i] 63 [in_i] [facility] ([facility]) Systolic blood pressure 117 mm[Hg] 117 mm[Hg] A [facility] ([facility]) Body weight 3516.8 [oz_av] 3516.8 [oz_av] ATHEN A ([facility]) Body mass index (BMI) [Ratio] 38.9 kg/m2 38.9 k g/m2 [facility]JIT ([facility]) Diastolic blood pressure 83 mm[Hg] 83 mm[Hg] [facility] ([facility]) Body height 63 [in_i] 63 [in_i] [facility] ([facility]) Body mass index (BMI) [Ratio] 38.9 kg/m2 38.9 k g/m2 [facility] ([facility]) Systolic blood pressure 117 mm[Hg] 117 mm[Hg] [facility] [employer] ([facility]) Body weight 3516.8 [oz_av] 3516.8 [oz_av] ATHEN A ([facility]) Patient Treatment Plan of Care Planned Activity Planned Date Details Description Data Source (s) Sulfamethoxazole 800 MG / Trimethoprim 160 MG Oral Tablet [facility] ([facility]) NITROFURANTOIN, MACROCRYSTALS 25 MG / Ni trofurantoin, Monohydrate 75 MG Oral Capsule [facility] ([facility]) Ibuprofen 800 MG Oral Tablet [facility] ([facility]) Ciprofloxacin 500 MG Oral Tablet [facility] ([facility]) cefdinir 300 MG Oral Capsule [facility] ([facility]) Amoxicillin 500 MG Oral Capsule [facility] ([facility]) Sulfamethoxazole 800 MG / Trimethoprim 160 MG Oral [facility]t [facility] Ibuprofen 800 MG Oral Tablet [facility] ([facility]) Ciprofloxacin 500 MG Oral Tablet [facility] ([facility]) cefdinir 300 MG Oral Capsule [facility] ([facility])
[2020-12-30 18:30] LABS: BLOOD UREA NITROGEN 10 MG/DL (7-18); CALCIUM LEVEL 9.3 MG/DL (8.5-10.1); CARBON DIOXIDE LEVEL 24 MEQ/L (21-32); CHLORIDE LEVEL 108 MEQ/L (98-107); CK-MB VALUE MASS 3.1 NG/ML (<3.6); CPK CREATINE PHOSPHOKINASE 129 U/L (26-192); GLOMERULAR FILTRATION RATE > 60.0 (>60); GLUCOSE, FASTING 106 MG/DL (70-100); POTASSIUM SERUM 3.8 MEQ/L (3.5-5.1); SODIUM LEVEL 139 MEQ/L (136-145); TROPONIN I < 0.02 NG/ML (< 0.10)
[2020-12-30] MEDS ORDERED: ISOVUE-370 76% 100ML VIAL As Ordered ONE (19:03)
[2020-12-30 19:24] LABS: FREE T4 0.92 NG/DL (0.76-1.46); THYROID STIMULATING HORMONE 0.901 uIU/ML (0.358-3.740)
--- NOTE | 2020-12-30 19:50 | REP ---
INDICATION: ro dvt COMPARISON: None. TECHNIQUE: Real time compression and duplex Doppler interrogation of the bilateral lower extremity deep venous system is performed. Compression ultrasound is performed of the bilateral peroneal and posterior tibial veins. FINDINGS: Bilaterally, the common femoral, superficial femoral and popliteal veins are fully compressible with transducer pressure and demonstrate normal spontaneous and phasic flow, without evidence of deep venous thrombosis. No thrombus is seen in the bilateral visualized portions of the peroneal and posterior tibial veins. IMPRESSION: No evidence of deep venous thrombosis of the bilateral lower extremity femoral popliteal venous system. <Electronically signed by Sergey Bahena > 12/30/201945
[2020-12-30 21:36] VITALS: BP 132/76
--- NOTE | 2020-12-30 21:36 | REPVR ---
PROCEDURE INFORMATION: Exam: CTA Chest With Contrast Exam date and time: 12/30/2020 8:20 PM Age: 25 years old Clinical indication: Pain; Angina pectoris; Additional info: Chest pain TECHNIQUE: Imaging protocol: Computed tomographic angiography of the chest with contrast. 3D rendering (Not supervised by radiologist): MIP and/or 3D reconstructed images were created by the technologist. Radiation optimization: All CT scans at this facility use at least one of these dose optimization techniques: automated exposure control; mA and/or kV adjustment per patient size (includes targeted exams where dose is matched to clinical indication); or iterative reconstruction. Contrast material: ISOVUE 370; Contrast volume: 75 ml; Contrast route: INTRAVENOUS (IV); COMPARISON: CR PORTABLE CHEST X-RAY 12/30/2020 5:45 PM FINDINGS: Pulmonary arteries: There is opacification of the pulmonary arteries with no evidence of pulmonary embolus. Aorta: There is opacification of the aorta and appearing intact. Lungs: Clear appearing lungs. Pleural spaces: Unremarkable. No pneumothorax. No pleural effusion. Heart: The heart is top-normal in size and there is no pericardial effusion. Lymph nodes: Unremarkable. No enlarged lymph nodes. Bones/joints: Unremarkable. No acute fracture. Soft tissues: There is no evidence of soft tissue abnormality. IMPRESSION: No evidence of pulmonary embolus. Electronically signed by: Mahamed Cantu On 12/30/2020 21:36:29 PM
--- NOTE | 2020-12-31 18:58 | ECGEPIP ---
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
== END 2020-12-30 22:04 | disposition home or self-care (01) ==
LOC: M ED 17:12
DX: R07.9 Chest pain, unspecified (principal); R00.2 Palpitations; R00.0 Tachycardia, unspecified; I10 Essential (primary) hypertension; Z86.16 Personal history of COVID-19
CPT/HCPCS: 71045; 71275; 80048; 82550; 82553; 84439; 84443; 85025; 85379; 93005; 93970; 99284; Q9967

== ENCOUNTER → 2020-12-30 | Outpatient (CLI) | payer OTHER ==
[2020-12-30 16:51] LABS: HEMOGLOBIN A1c 5.2 %
--- NOTE | 2020-12-30 16:54 | REP ---
INDICATION: CHEST PAIN, UNSPECIFIED-LABS FIRST-. COMPARISON: 03/09/2019 FINDINGS: The superior mediastinal structures are midline. The cardiac silhouette is unremarkable in size, shape, and position. The diaphragmatic surfaces of the lungs are regular, and the costophrenic angles are clear. The pulmonary muñiz are clear. The imaged osseous structures are intact. IMPRESSION: There is no acute cardiopulmonary disease. <Electronically signed by Edison Mcginnis > 12/30/20 [id number]
== END ==
LOC: M LAB 15:10
PROVIDERS: ATTEND Pediatrics
DX: R10.9 Unspecified abdominal pain (principal); R07.9 Chest pain, unspecified; E66.01 Morbid (severe) obesity due to excess calories

== ENCOUNTER → 2021-04-07 | Outpatient (REF) | payer OTHER | LOC: M SFHCWAGY 13:07 | PROVIDERS: ATTEND Obstetrics & Gynecology | DX: R87.610 Atypical squamous cells of undetermined significance on cytologic smear of cervix (ASC-US) (principal); Z77.9 Other contact with and (suspected) exposures hazardous to health; Z12.4 Encounter for screening for malignant neoplasm of cervix ==

== ENCOUNTER → 2021-04-26 | Outpatient (REF) | payer OTHER ==
[2021-04-26 17:41] LABS: APPEARANCE, URINE CLEAR (CLEAR); BACTERIA, URINE AUTO 1+ (NEGATIVE); BILIRUBIN, URINE AUTO NEGATIVE (NEGATIVE); BLOOD, URINE BLOOD NEGATIVE (NEGATIVE); COLOR, URINE YELLOW (YELLOW); GLUCOSE, URINE (UA) AUTO NEGATIVE (NEGATIVE); KETONE, URINE AUTO NEGATIVE (NEGATIVE); LEUKOCYTE ESTERASE, URINE AUTO TRACE (NEGATIVE); MUCUS, URINE SMALL (NEGATIVE); NITRITE, URINE AUTO NEGATIVE (NEGATIVE); PROTEIN, URINE AUTO NEGATIVE (NEGATIVE); RBC, URINE AUTO 0 /HPF (0-3); SPECIFIC GRAVITY URINE AUTO 1.015 (1.002-1.035); SQUAMOUS EPITHELIAL CELL UR AU 4 /HPF (0-6); UROBILINOGEN, URINE AUTO 0.2 mg/dL (0.0-2.0); WBC, URINE AUTO 5 /HPF (0-3)
== END ==
LOC: M SMT 16:36
PROVIDERS: ATTEND Nurse Practitioner Women's Health
DX: R30.0 Dysuria (principal)

== ENCOUNTER → 2021-04-27 | Outpatient (CLI) | payer OTHER | LOC: M RAD 14:23 | PROVIDERS: ATTEND Pediatrics | DX: N39.0 Urinary tract infection, site not specified (principal) ==

== ENCOUNTER → 2021-04-28 | Outpatient (CLI) | payer OTHER | LOC: M RAD 14:24 | PROVIDERS: ATTEND Nurse Practitioner Women's Health | DX: R39.198 Other difficulties with micturition (principal); Z87.440 Personal history of urinary (tract) infections ==

== ENCOUNTER 2021-06-30 16:44 | Emergency (ER) | payer OTHER ==
[~2021-06-30] VITALS: Ht 160 cm; Wt 100.0 kg
[~2021-06-30 16:44] MED LIST changes: +LABE200T3 PO; -LABE200T32 PO
[2021-06-30] MEDS ORDERED: NAPR-885 PO (19:07)
[2021-06-30 19:19] VITALS: BP 142/76
== END 2021-06-30 19:33 | disposition home or self-care (01) ==
LOC: M ED 16:44
DX: R00.0 Tachycardia, unspecified (principal); R07.89 Other chest pain

== ENCOUNTER → 2021-11-12 | Outpatient (REF) | payer OTHER ==
[~2021-11-12] MED LIST changes: -LABE200T3 PO; +LABE200T5 PO; +NAPR-885 PO
== END ==
LOC: M LAB REF 16:27
PROVIDERS: ATTEND Pediatrics
DX: N39.0 Urinary tract infection, site not specified (principal)

== ENCOUNTER → 2021-11-29 | Outpatient (CLI) | payer OTHER ==
[~2021-11-29] MED LIST changes: +GASTROGRAFIN SOLUTION 30ML (Q9963) As Ordered ONE; +ISOVUE-370 76% 100ML VIAL As Ordered ONE
== END ==
LOC: M RAD 16:02
PROVIDERS: ATTEND Pediatrics
DX: R10.13 Epigastric pain (principal)
CPT/HCPCS: 74177; Q9963; Q9967

== ENCOUNTER → 2021-12-09 | Outpatient (REF) | payer OTHER ==
[~2021-12-09] MED LIST changes: -GASTROGRAFIN SOLUTION 30ML (Q9963) As Ordered ONE; -ISOVUE-370 76% 100ML VIAL As Ordered ONE
[2021-12-09 17:14] LABS: APPEARANCE, URINE MANUAL CLOUDY (CLEAR); COLOR, URINE MANUAL YELLOW (YELLOW); PROTEIN, URINE MANUAL 1+ mg/dL (NEGATIVE); SPECIFIC GRAVITY,URINE MANUAL 1.022 (1.002-1.035)
[2021-12-09 17:15] LABS: BILIRUBIN, URINE MANUAL NEGATIVE (NEGATIVE); BLOOD URINE MANUAL TRACE (NEGATIVE); GLUCOSE, URINE (UA) MANUAL NEGATIVE (NEGATIVE); KETONE, URINE MANUAL NEGATIVE (NEGATIVE); LEUKOCYTE ESTERASE, URINE MAN POSITIVE (NEGATIVE); NITRITE, URINE MANUAL NEGATIVE (NEGATIVE); UROBILINOGEN, URINE MANUAL NORMAL (NORMAL)
[2021-12-09 17:32] LABS: AMORPHOUS SEDIMENT, URINE LARGE AMOUNT (NEGATIVE); BACTERIA, URINE SMALL AMOUNT; HYALINE CAST, URINE NONE SEEN /lpf (0-1); MUCUS, URINE MOD AMOUNT (NEGATIVE); RBC, URINE NONE SEEN /hpf (0-3); SQUAMOUS EPITHELIAL CELL URINE SMALL AMOUNT /hpf (SMALL AMT)
== END ==
LOC: M LAB REF 16:22
PROVIDERS: ATTEND Physician Assistant
DX: N39.0 Urinary tract infection, site not specified (principal); B34.9 Viral infection, unspecified

== ENCOUNTER → 2022-02-16 | Outpatient (REF) | payer OTHER ==
[2022-02-16 21:58] LABS: APPEARANCE, URINE MANUAL HAZY (CLEAR); COLOR, URINE MANUAL YELLOW (YELLOW)
[2022-02-16 21:59] LABS: BILIRUBIN, URINE MANUAL NEGATIVE (NEGATIVE); BLOOD URINE MANUAL TRACE (NEGATIVE); GLUCOSE, URINE (UA) MANUAL NEGATIVE (NEGATIVE); KETONE, URINE MANUAL NEGATIVE (NEGATIVE); NITRITE, URINE MANUAL NEGATIVE (NEGATIVE); PROTEIN, URINE MANUAL TRACE mg/dL (NEGATIVE); SPECIFIC GRAVITY,URINE MANUAL 1.025 (1.002-1.035); UROBILINOGEN, URINE MANUAL NORMAL (NORMAL)
[2022-02-16 22:00] LABS: LEUKOCYTE ESTERASE, URINE MAN POSITIVE (NEGATIVE)
[2022-02-16 22:20] LABS: WBC, URINE TNTC /hpf (0-3)
[2022-02-16 22:21] LABS: SQUAMOUS EPITHELIAL CELL URINE SMALL AMOUNT /hpf (SMALL AMT)
[2022-02-16 22:22] LABS: BACTERIA, URINE SMALL AMOUNT; HYALINE CAST, URINE NONE SEEN /lpf (0-1); MUCUS, URINE SMALL AMOUNT (NEGATIVE)
== END ==
LOC: M LAB REF 21:22
PROVIDERS: ATTEND Physician Assistant Medical
DX: N39.0 Urinary tract infection, site not specified (principal)

== ENCOUNTER → 2022-04-05 | Outpatient (REF) | payer OTHER | LOC: M LAB REF 16:23 | PROVIDERS: ATTEND Pediatrics | DX: R35.0 Frequency of micturition (principal) ==

== ENCOUNTER 2022-06-27 09:22 | Emergency (ER) | payer OTHER ==
[~2022-06-27] VITALS: Ht 160 cm; Wt 96.5 kg
[2022-06-27 09:24] VITALS: BP 158/84
== END 2022-06-27 09:36 | disposition left against medical advice (07) ==
LOC: M ED 09:22
DX: Z53.21 Procedure and treatment not carried out due to patient leaving prior to being seen by health care provider (principal)

== ENCOUNTER → 2022-08-02 | Outpatient (REF) | payer OTHER ==
[2022-08-02 17:36] LABS: HEMOGLOBIN A1c 5.1 % (4.0-6.0)
[2022-08-02 17:53] LABS: ALBUMIN 3.8 G/DL (3.2-5.2); ALKALINE PHOSPHATASE 68 U/L (46-116); ALT/SGPT 30 U/L (7.0-40); AST/SGOT 18 U/L (<34); BILIRUBIN,TOTAL 0.2 MG/DL (0.3-1.2); BLOOD UREA NITROGEN 13 MG/DL (9-23); CALCIUM LEVEL 9.4 MG/DL (8.5-10.1); CARBON DIOXIDE LEVEL 26 MMOL/L (20-31); CHLORIDE LEVEL 107 MMOL/L (98-107); CHOLESTEROL LEVEL 161 MG/DL (<200); CHOLESTEROL RISK RATIO 3.38 (<5); CREATININE FOR GFR 0.61 MG/DL (0.55-1.30); GLOMERULAR FILTRATION RATE > 60.0 (>60); GLUCOSE, FASTING 87 MG/DL (60-100); HDL CHOLESTEROL 47.5 MG/DL (>40); LDL CHOLESTEROL 97.3 MG/DL (<100); NON-HDL-C 113.5 MG/DL; POTASSIUM SERUM 4.6 MMOL/L (3.5-5.1); SODIUM LEVEL 135 MMOL/L (136-145); TOTAL PROTEIN 7.3 G/DL (5.7-8.2); TRIGLYCERIDES LEVEL 81 MG/DL (<150)
[2022-08-02 17:55] LABS: THYROID STIMULATING HORMONE 1.398 uIU/ML (0.55-4.78)
== END ==
LOC: M LAB REF 16:19
PROVIDERS: ATTEND Pediatrics
DX: E66.9 Obesity, unspecified (principal); Z68.37 Body mass index [BMI] 37.0-37.9, adult; E88.81 Metabolic syndrome and other insulin resistance

== ENCOUNTER → 2022-08-03 | Outpatient (REF) | payer OTHER | LOC: M SFHCWAGY 17:54 | PROVIDERS: ATTEND Obstetrics & Gynecology | DX: Z12.4 Encounter for screening for malignant neoplasm of cervix (principal) ==

== ENCOUNTER → 2023-07-20 | Outpatient (REF) | payer OTHER ==
[2023-07-20 22:14] LABS: APPEARANCE, URINE CLOUDY (CLEAR); BACTERIA, URINE AUTO 1+ (NEGATIVE); BILIRUBIN, URINE AUTO NEGATIVE (NEGATIVE); BLOOD, URINE BLOOD NEGATIVE (NEGATIVE); CALCIUM OXALATE CRYSTALS SMALL; COLOR, URINE AMBER (YELLOW); GLUCOSE, URINE (UA) AUTO NEGATIVE (NEGATIVE); KETONE, URINE AUTO NEGATIVE (NEGATIVE); LEUKOCYTE ESTERASE, URINE AUTO TRACE (NEGATIVE); MUCUS, URINE SMALL (NEGATIVE); NITRITE, URINE AUTO POSITIVE (NEGATIVE); PROTEIN, URINE AUTO 1+ mg/dL (NEGATIVE); RBC, URINE AUTO 1 /HPF (0-3); SPECIFIC GRAVITY URINE AUTO 1.026 (1.002-1.035); SQUAMOUS EPITHELIAL CELL UR AU 12 /HPF (0-6); UROBILINOGEN, URINE AUTO 0.2 mg/dL (0.0-2.0); WBC, URINE AUTO 13 /HPF (0-3)
== END ==
LOC: M LAB REF 21:29
PROVIDERS: ATTEND Physician Assistant
DX: N39.0 Urinary tract infection, site not specified (principal)

== ENCOUNTER → 2023-09-27 | Outpatient (CLI) | payer BC | LOC: M WHC 10:35 | PROVIDERS: ATTEND Pediatrics | DX: N64.4 Mastodynia (principal); D17.1 Benign lipomatous neoplasm of skin and subcutaneous tissue of trunk ==

== ENCOUNTER → 2023-11-07 | Outpatient (REF) | payer BC ==
[2023-11-07 17:07] LABS: BASO # 0.1 10^3/uL (0.0-0.2); BASO % 0.9 % (0.0-1.0); EOS # 0.1 10^3/uL (0.0-0.5); EOS % 1.3 % (0.0-3.0); HEMATOCRIT 41.7 % (36.0-47.0); HEMOGLOBIN 13.4 g/dl (12.0-15.5); LYMPH # 1.7 10^3/uL (1.5-5.0); LYMPH % 31.1 % (24.0-44.0); MEAN CORPUSCULAR HEMOGLOBIN 29.6 pg (27.0-33.0); MEAN CORPUSCULAR HGB CONC 32.1 g/dl (32.0-36.5); MEAN CORPUSCULAR VOLUME 92.1 fl (80.0-96.0); MONO # 0.5 10^3/uL (0.0-0.8); NEUTROPHILS % 56.5 % (36.0-66.0); PLATELET COUNT, AUTOMATED 294 10^3/uL (150-450); RED BLOOD COUNT 4.53 10^6/uL (4.00-5.40); WHITE BLOOD COUNT 5.3 10^3/uL (4.0-10.0)
[2023-11-07 17:27] LABS: ALKALINE PHOSPHATASE 80 U/L (46-116); ALT/SGPT 22 U/L (7.0-40); AST/SGOT 14 U/L (<34); BILIRUBIN,TOTAL 0.5 MG/DL (0.3-1.2); BLOOD UREA NITROGEN 17 MG/DL (9-23); CALCIUM LEVEL 9.3 MG/DL (8.5-10.1); CARBON DIOXIDE LEVEL 25 MMOL/L (20-31); CHLORIDE LEVEL 107 MMOL/L (98-107); CREATININE FOR GFR 0.68 MG/DL (0.55-1.30); GLOMERULAR FILTRATION RATE > 60.0 (>60); GLUCOSE, FASTING 91 MG/DL (60-100); POTASSIUM SERUM 4.2 MMOL/L (3.5-5.1); SODIUM LEVEL 137 MMOL/L (136-145); TOTAL PROTEIN 7.8 G/DL (5.7-8.2)
[2023-11-07 17:29] LABS: TOTAL 25(OH) VITAMIN D 29.6 NG/ML (20.0-100.0)
== END ==
LOC: M LAB REF 16:29
PROVIDERS: ATTEND Pediatrics
DX: E55.9 Vitamin D deficiency, unspecified (principal)

== ENCOUNTER → 2023-12-01 | Outpatient (REF) | payer BC ==
[2023-12-01 17:14] LABS: BASO % 0.5 % (0.0-1.0); EOS % 0.5 % (0.0-3.0); HEMOGLOBIN 12.9 g/dl (12.0-15.5); LYMPH # 1.6 10^3/uL (1.5-5.0); LYMPH % 27.7 % (24.0-44.0); MEAN CORPUSCULAR HEMOGLOBIN 29.6 pg (27.0-33.0); MEAN CORPUSCULAR HGB CONC 32.3 g/dl (32.0-36.5); MEAN CORPUSCULAR VOLUME 91.7 fl (80.0-96.0); MONO # 0.5 10^3/uL (0.0-0.8); MONO % 9.2 % (2.0-8.0); NEUTROPHILS # 3.6 10^3/uL (1.5-8.5); NEUTROPHILS % 61.9 % (36.0-66.0); PLATELET COUNT, AUTOMATED 305 10^3/uL (150-450); RED BLOOD COUNT 4.36 10^6/uL (4.00-5.40); WHITE BLOOD COUNT 5.8 10^3/uL (4.0-10.0)
== END ==
LOC: M LAB REF 16:34
PROVIDERS: ATTEND Pediatrics
DX: R19.00 Intra-abdominal and pelvic swelling, mass and lump, unspecified site (principal)

== ENCOUNTER 2023-12-10 08:33 | Emergency (ER) | payer BC ==
[~2023-12-10] VITALS: Ht 160 cm; Wt 97.1 kg
[2023-12-10] MEDS ORDERED: FAMO40TA3 (08:49)
[2023-12-10] MEDS ORDERED: SERT25TA21 (08:49)
[2023-12-10 10:53] VITALS: BP 128/86; TEMP 98.1; O2SAT 99
== END 2023-12-10 10:56 | disposition home or self-care (01) ==
LOC: M ED 08:33
DX: M79.604 Pain in right leg (principal); Z79.899 Other long term (current) drug therapy

== ENCOUNTER → 2024-10-16 | Outpatient (REF) | payer BC ==
[~2024-10-16] MED LIST changes: +FAMO40TA3; +SERT25TA21
[2024-10-16 14:02] LABS: Trichomonas vaginalis (AMP) NOT DETECTED (NEGATIVE)
[2024-10-16 14:26] LABS: GC DNA AMPLIFICATION NEGATIVE (NEGATIVE)
== END ==
LOC: M LAB REF 12:03
PROVIDERS: ATTEND Pediatrics
DX: R82.90 Unspecified abnormal findings in urine (principal)

== ENCOUNTER → 2024-11-13 | Outpatient (REF) | payer BC ==
[2024-11-13 21:22] LABS: APPEARANCE, URINE MANUAL CLOUDY (CLEAR); BILIRUBIN, URINE MANUAL OBSCURED (NEGATIVE); BLOOD URINE MANUAL OBSCURED (NEGATIVE); COLOR, URINE MANUAL AMBER (YELLOW); GLUCOSE, URINE (UA) MANUAL OBSCURED mg/dL (NEGATIVE); KETONE, URINE MANUAL OBSCURED mg/dL (NEGATIVE); LEUKOCYTE ESTERASE, URINE MAN OBSCURED (NEGATIVE); NITRITE, URINE MANUAL OBSCURED (NEGATIVE); PH,URINE MAN OBSCURED UNITS (5.0 - 7.0); PROTEIN, URINE MANUAL OBSCURED mg/dL (NEGATIVE); SPECIFIC GRAVITY,URINE MANUAL 1.023 (1.002-1.035); UROBILINOGEN, URINE MANUAL OBSCURED mg/dl (NORMAL)
[2024-11-13 21:32] LABS: BACTERIA, URINE LARGE AMOUNT; RBC, URINE TNTC /hpf (0-3); SQUAMOUS EPITHELIAL CELL URINE LARGE AMOUNT /hpf (SMALL AMT); TRANSITIONAL EPI CELLS, URINE SMALL AMOUNT /hpf; WBC, URINE TNTC /hpf (0-3)
[2024-11-13 21:33] LABS: HYALINE CAST, URINE NONE SEEN /lpf (0-1); MUCUS, URINE LARGE AMOUNT (NEGATIVE)
== END ==
LOC: M LAB REF 21:00
PROVIDERS: ATTEND Physician Assistant
DX: N39.0 Urinary tract infection, site not specified (principal)

== ENCOUNTER → 2024-11-13 | Outpatient (CLI) | payer BC | LOC: M WHC 07:26 | PROVIDERS: ATTEND Nurse Practitioner Family | DX: R19.00 Intra-abdominal and pelvic swelling, mass and lump, unspecified site (principal); K21.9 Gastro-esophageal reflux disease without esophagitis; R19.8 Other specified symptoms and signs involving the digestive system and abdomen; K82.8 Other specified diseases of gallbladder ==

== ENCOUNTER → 2024-12-05 | Outpatient (REF) | payer BC ==
[~2024-12-05] MED LIST changes: +CEFD300CAP PO; +PROT20TA11 PO; +TIRZ10PE SQ
[2024-12-17 15:08] LABS: HPV APTIMA Not Detected (Not Detected)
== END ==
LOC: M SFHCWAGY 09:48
PROVIDERS: ATTEND Obstetrics & Gynecology
DX: Z01.419 Encounter for gynecological examination (general) (routine) without abnormal findings (principal)
CPT/HCPCS: 87624; G0123

== ENCOUNTER 2024-12-18 11:40 | Emergency (ER) | payer BC ==
[~2024-12-18] VITALS: Ht 160 cm; Wt 78.2 kg
[~2024-12-18 11:40] MED LIST changes: -CEFD300CAP PO; -PROT20TA11 PO; -TIRZ10PE SQ
[2024-12-18 11:42] VITALS: TEMP 96.8
[2024-12-18] MEDS ORDERED: TIRZ10PE SQ (12:06)
[2024-12-18 13:00] LABS: BASO # 0.0 10^3/uL (0.0-0.2); BASO % 0.4 % (0.0-1.0); EOS # 0.1 10^3/uL (0.0-0.5); EOS % 0.6 % (0.0-3.0); LYMPH # 1.9 10^3/uL (1.5-5.0); LYMPH % 23.2 % (24.0-44.0); MONO # 0.6 10^3/uL (0.0-0.8); MONO % 7.1 % (2.0-8.0); NEUTROPHILS # 5.5 10^3/uL (1.5-8.5); NEUTROPHILS % 68.6 % (36.0-66.0); PLATELET COUNT, AUTOMATED 309 10^3/uL (150-450)
[2024-12-18 13:09] LABS: KETONE, URINE AUTO RFX NEGATIVE (NEGATIVE); LEUKOCYTE ESTERASE UR AUTO RFX 1+ (NEGATIVE); NITRITE, URINE AUTO RFX POSITIVE (NEGATIVE); RBC, URINE AUTO RFX 1 /HPF (0-3); SQUAM EPITHELIAL CELL UR AURFX 0 /HPF (0-6); WBC, URINE AUTO RFX 39 /HPF (0-3)
[2024-12-18 13:23] LABS: ALT/SGPT 19 U/L (7.0-40); AST/SGOT 16 U/L (<34); CALCIUM LEVEL 9.0 MG/DL (8.5-10.1); CARBON DIOXIDE LEVEL 26 MMOL/L (20-31); CHLORIDE LEVEL 105 MMOL/L (98-107); CREATININE FOR GFR 0.62 MG/DL (0.55-1.30); GLOMERULAR FILTRATION RATE > 90.0 (>60); POTASSIUM SERUM 4.1 MMOL/L (3.5-5.1); SODIUM LEVEL 140 MMOL/L (136-145)
[2024-12-18 13:51] LABS: HCG, SERUM QUALITATIVE NEGATIVE (NEGATIVE)
[2024-12-18] MEDS ORDERED: CEFD300CAP PO (14:14)
[2024-12-18] MEDS ORDERED: PROT20TA11 PO (14:14)
[2024-12-18 14:18] VITALS: BP 142/76; O2SAT 100
[2024-12-20] MEDS ORDERED: NITR100C3 PO (08:57)
== END 2024-12-18 14:29 | disposition home or self-care (01) ==
LOC: M ED 11:40
DX: N39.0 Urinary tract infection, site not specified (principal); R10.13 Epigastric pain; Z79.2 Long term (current) use of antibiotics; Z79.899 Other long term (current) drug therapy

== ENCOUNTER → 2025-01-08 | Outpatient (CLI) | payer BC ==
[~2025-01-08] MED LIST changes: +CEFD300CAP PO; +NITR100C3 PO; +PROT20TA11 PO; +TIRZ10PE SQ
== END ==
LOC: M WHC 13:48
PROVIDERS: ATTEND Obstetrics & Gynecology
DX: N63.21 Unspecified lump in the left breast, upper outer quadrant (principal); R10.20 Pelvic and perineal pain unspecified side